=== PATIENT | male | born 1950 | race Hispanic/Latino ===

== ENCOUNTER 2017-09-03 18:29 | Emergency (ER) | payer OTHER ==
[2017-09-03] MEDS ORDERED: FENTANYL CITR 100 MCG/2 ML ONE ×2 (18:49→20:08)
[2017-09-03] MEDS ORDERED: NA CHLORIDE 0.9% 1,000 ML ONE (18:49)
[2017-09-03] MEDS ORDERED: ONDANSETRON 4 MG/2 ML VIAL ONE (18:49)
[2017-09-03 19:05] LABS: Absolute Lymphocytes (CBC) 1.2 K/uL (0.7-4.9); Absolute Monocytes 0.4 K/uL (0.1-1.3); Absolute Neutrophil 9.1 K/uL (1.8-8.0); Basophils % 0.2 % (0-1.3); Eosinophils % 0.7 % (0-4.4); Hematocrit 33.3 % (39.6-49.0); MCH 30.5 pg (27.0-35.0); MPV 10.3 fL (7.6-11.3); Monocytes % 3.9 % (3.3-12.3); RBC Red Blood Cell Count 3.73 M/uL (4.33-5.43)
[2017-09-03 19:35] LABS: Albumin 3.9 g/dL (3.4-5.0); Bilirubin Direct 0.2 mg/dL (0-0.2); Bilirubin Total 0.6 mg/dL (0.2-1.0); Protein, Total 7.2 g/dL (6.4-8.2)
--- NOTE | 2017-09-03 19:40 | ER ---
Nurse's Notes [facility] Name: Keith Maynard Age: 67 yrs Sex: Male : 1950 Arrival Date: 09/03/2017 Time: 18:[address] Private MD: Diagnosis: Multiple fractures of ribs, bilateral;Fracture of unspecified thoracic vertebra Presentation: 09/03 18:35 Trauma event details: Injury occurred in the [facility], Injury occurred: at home. Injury occurred: September 03, 2017. 18:35 Acuity: ROBINSON 2 sv 18:35 Method Of Arrival: EMS: [facility] sv 18:44 Initial Sepsis Screen: Does the patient meet any 2 criteria? RR > 20 per min. Yes Does sv the patient have a suspected source of infection? No. Patient's initial sepsis screen is negative. Care prior to arrival: Cervical collar in place. 18:52 Transition of care: patient was not received from another setting of care. Onset of sv symptoms was September 03, 2017. Risk Assessment: Do you want to hurt yourself or someone else? Patient reports no desire to harm self or others. 19:30 Presenting complaint: HE FELL TEN FEET OUT OF A TREE. bp 19:30 Mechanism of Injury: Fall approximately 10 feet. bp Triage Assessment: 19:30 General: Appears distressed, uncomfortable, Behavior is calm, cooperative, appropriate bp for age. Trauma Activation: Alert Physician: ED Physician; Name: Dr. Dailey; Notified At: 18:31; Arrived At: 18:32 Physician: General Surgeon; Name: ; Notified At: 18:31; Arrived At: Physician: Radiology; Name: ; Notified At: 18:31; Arrived At: Physician: Respiratory; Name: ; Notified At: 18:31; Arrived At: Physician: Lab; Name: ; Notified At: 18:31; Arrived At: Historical: - Allergies: 18:50 PENICILLINS; sv - PMHx: 18:50 Diabetes - NIDDM; Hypertension; sv - Immunization history:: Adult Immunizations up to date. - Social history:: Patient/guardian denies using alcohol, street drugs, IV drugs, Smoking status: Patient/guardian denies using tobacco. - Immunization history: Last tetanus immunization: unknown. - Ebola Screening: : No symptoms or risks identified at this time. - Family history:: not pertinent. - Hospitalizations: : No recent hospitalization is reported. Screenin:39 Abuse screen: Denies threats or abuse. Denies injuries from another. Nutritional sv screening: No deficits noted. Tuberculosis screening: No symptoms or risk factors identified. 19:30 Fall Risk Fall in past 12 months (25 points). No secondary diagnosis (0 pts). IV access bp (20 points). Ambulatory Aid- None/Bed Rest/Nurse Assist (0 pts). Gait- Normal/Bed Rest/Wheelchair (0 pts) Mental Status- Oriented to own ability (0 pts). Total [place] Fall Scale indicates High Risk Score (45 or more points). Fall prevention measures have been instituted. Side Rails Up X 2 Placed Close to Nursing Station Frequent Obs/Assessments Occuring Family Present and informed to notify staff if the need to leave the bedside As available patient and family educated on Fall Prevention Program and Strategies. Primary Survey: 18:45 A: Airway: patent, No supplemental oxygen in use on arrival. Oral cavity: clear. sg Breathing/Chest: Respiratory pattern: regular, Respiratory effort: spontaneous, unlabored, Breath sounds: clear, bilaterally. Chest inspection: symmetrical rise and fall of the chest. Circulation: Heart tones present. Pulses: palpable right radial artery, right posterior tibial artery, left radial artery and left posterior tibial artery. Skin color: pink, Skin temperature: warm. Disability Alert. 18:59 Reassessment Airway Airway Patent Oxygen Nasal cannula Oral cavity Clear Trachea sg Midline Breathing/Chest Respiratory pattern Regular Respiratory effort Spontaneous Unlabored Breath sounds Clear Chest inspection Symmetrical Circulation Heart tones Present Pulses Palpable Color [place] Temperature Warm Disability Alert. Secondary Survey: 18:45 HEENT: No deficits noted. Head Face No injury/deformity Eyes: No injury or deformity sg noted. Ears: abrasion noted to right ear. Nose: clear Throat: No injury or deformity noted. Gastrointestinal: No deficits noted. Abdomen is soft, Bowel sounds present in right upper quadrant, left upper quadrant, right lower quadrant and left lower quadrant Palpation No deficit noted. : No signs and/or symptoms were reported regarding the genitourinary system. Musculoskeletal: Circulation, motion, and sensation intact. Capillary refill is brisk, in bilateral fingers. toes. Range of motion: intact in all extremities, Swelling present in medial aspect of left calf Reports pain in back, left supraclavicular area, left clavicle and neck. Assessment: 18:42 Reassessment: Xray at the bedside. sv 19:34 Reassessment: RECD 67YO HM FROM KIERSTEN RN, S/P FALL \R\10FT FROM TREE. ALL ORDERS bp COMPLETED, CT RESULTS PENDING. PER INITIAL READ SEVERAL POSSIBLE THORACIC FX. CC AND SPINAL PRECAUTIONS REMAIN IN PLACE. 19:55 Reassessment: REPORT TO [facility] FOR TRAUMA TRANSFER, TRANSPORT PENDING. bp 20:15 Reassessment: EMS AT B/S FOR TRANSPORT. SPINAL PRECAUTIONS MAINTAINED. bp Vital Signs: 18:26 BP 116 / 72; Pulse 77; Resp 22; Pulse Ox 100% ; sv 18:26 Temp 97.7; sg 19:24 Weight 75.3 kg; Height 5 ft. 6 in. (167.64 cm); ms 19:30 BP 115 / 63; Pulse 74; Resp 21; Pulse Ox 100% ; bp 20:15 BP 134 / 65; Pulse 85; Resp 18; Pulse Ox 100% ; bp 19:24 Body Mass Index 26.79 (75.30 kg, 167.64 cm) ms [place] Coma Score: 18:26 Eye Response: spontaneous(4). Verbal Response: oriented(5). Motor Response: obeys sv commands(6). Total: 15. Trauma Score (Adult): 18:26 Eye Response: spontaneous(1); Verbal Response: oriented(1); Motor Response: obeys sv commands(2); Systolic BP: > 89 mm Hg(4); Respiratory Rate: 10 to 29 per min(4); [place] Score: 15; Trauma Score: 12 ED Course: 18:32 Initial lab(s) drawn, by ED staff, sent to lab. Inserted saline lock: 18 gauge in right sv antecubital area, using aseptic technique. ,using aseptic technique. done by [facility] Blood collected. 18:38 Patient arrived in ED. sv 18:38 Allen Dailey MD is Attending Physician. wa 18:39 Patient has correct armband on for positive identification. Placed in gown. Bed in low sv position. Side rails up X2. Adult w/ patient. shank faker on. Pulse ox on. NIBP on. Door closed. Head of bed elevated. 18:40 Thermoregulation: warm blanket given to patient. sv 18:40 Oxygen administration via nasal cannula \T\ 3L/min Response to oxygen therapy:. sv 18:40 Arm band placed on left wrist. sv 18:52 Triage completed. sv 19:03 XRAY Pelvis In Process Unspecified. EDMS 19:04 XRAY Chest (1 view) In Process Unspecified. EDMS 19:04 Tib Fib Left XRAY In Process Unspecified. EDMS 19:07 Report given to Kiersten LOCKWOOD. sv 19:08 CT Traumagram (Head C Spine CAP wo con) In Process Unspecified. EDMS 19:08 CT completed. Patient tolerated procedure well. Patient moved to CT. Patient moved back id from CT. 19:30 No provider procedures requiring assistance completed. Patient transferred, IV remains bp in place. 19:34 Brown García, RN is Primary Nurse. bp Administered Medications: 18:47 Drug: Zofran 4 mg Route: IVP; Site: right antecubital; sv 19:18 Follow up: Response: No adverse reaction ak1 19:56 Follow up: Response: Nausea is decreased bp 18:49 Drug: fentaNYL (PF) 100 mcg Route: IVP; Site: right antecubital; sv 19:18 Follow up: Response: No adverse reaction ak1 19:56 Follow up: Response: Pain is decreased bp 19:18 Drug: NS 0.9% 1000 ml Route: IV; Rate: 1 bolus; Site: right antecubital; ak1 19:56 Follow up: IV Status: Infusion continued upon transfer bp 20:15 Drug: fentaNYL (PF) 50 mcg Route: IVP; Site: right antecubital; bp 20:29 Follow up: Response: Pain is decreased bp Intake: 18:26 PO: 0ml; Total: 0ml. sv Outcome: 19:40 ER care complete, transfer ordered by . gs 20:31 Transferred by ground EMS to [facility]. bp 20:31 Condition: stable 20:31 Instructed on the need for transfer. 20:34 Patient's length of stay was not longer than 2 hours. bp 20:34 Patient left the ED. bp Signatures: Dispatcher [employer] Jeannette Conway RN RN sv Gay, Steven, RN RN sg Solis, Maria ms Krenek, Amber, RN RN ak1 Sahara Alcantar, MANDIE RN Kulwinder Forbes Gregory, MD MD gs Allen Dailey MD MD wa Peltier, Brian, MANDIE RN bp
--- NOTE | 2017-09-03 19:41 | EDPHYS ---
Physician Documentation [facility] Name: Keith Maynard Age: 67 yrs Sex: Male : 1950 Arrival Date: 09/03/2017 Time: 18:[address] Private MD: ED Physician Allen Dailey HPI: 09/03 19:18 This 67 yrs old Male presents to ER via EMS with complaints of Fall Injury. wa 19:18 Details of fall: The patient fell from a height, out of a tree, approximately 15 feet. wa Onset: The symptoms/episode began/occurred just prior to arrival. Associated injuries: The patient sustained LOC. c/o back pain. Severity of symptoms: At their worst the symptoms were moderate, in the emergency department the symptoms are unchanged. The patient has not experienced similar symptoms in the past. The patient has not recently seen a physician. pt fell from at least 10 feet while trimming a tree. positive LOC. admits to pain in the back. Historical: - Allergies: 18:50 PENICILLINS; sv - PMHx: 18:50 Diabetes - NIDDM; Hypertension; sv - Immunization history:: Adult Immunizations up to date. - Social history:: Patient/guardian denies using alcohol, street drugs, IV drugs, Smoking status: Patient/guardian denies using tobacco. - Immunization history: Last tetanus immunization: unknown. - Ebola Screening: : No symptoms or risks identified at this time. - Family history:: not pertinent. - Hospitalizations: : No recent hospitalization is reported. ROS: 19:20 Constitutional: Negative for fever, chills, and weight loss, Eyes: Negative for injury, wa pain, redness, and discharge, ENT: Negative for injury, pain, and discharge, Cardiovascular: Negative for chest pain, palpitations, and edema, Respiratory: Negative for shortness of breath, cough, wheezing, and pleuritic chest pain, Abdomen/GI: Negative for abdominal pain, nausea, vomiting, diarrhea, and constipation, : Negative for injury, bleeding, discharge, and swelling, Skin: Negative for injury, rash, and discoloration, Psych: Negative for depression, anxiety, suicide ideation, homicidal ideation, and hallucinations. 19:20 Neck: Negative for swelling. 19:20 Back: Positive for pain at rest. 19:20 MS/extremity: Positive for pain, swelling, tenderness, of the L tibia. 19:20 Neuro: Positive for loss of consciousness. 19:20 All other systems are negative. Exam: 19:23 Constitutional: This is a well developed, well nourished patient who is awake, alert, wa and in no acute distress. Head/Face: Normocephalic, atraumatic. Eyes: Pupils equal round and reactive to light, extra-ocular motions intact. Lids and lashes normal. Conjunctiva and sclera are non-icteric and not injected. Cornea within normal limits. Periorbital areas with no swelling, redness, or edema. ENT: Nares patent. No nasal discharge, no septal abnormalities noted. Tympanic membranes are normal and external auditory canals are clear. Oropharynx with no redness, swelling, or masses, exudates, or evidence of obstruction, uvula midline. Mucous membranes moist. Cardiovascular: Regular rate and rhythm with a normal S1 and S2. No gallops, murmurs, or rubs. Normal PMI, no JVD. No pulse deficits. Skin: Warm, dry with normal turgor. Normal color with no rashes, no lesions, and no evidence of cellulitis. Neuro: Awake and alert, GCS 15, oriented to person, place, time, and situation. Cranial nerves II-XII grossly intact. Motor strength 5/5 in all extremities. Sensory grossly intact. Cerebellar exam normal. Normal gait. Psych: Awake, alert, with orientation to person, place and time. Behavior, mood, and affect are within normal limits. 19:23 Neck: External neck: is normal, C-spine: vertebral tenderness, that is mild, appreciated at C7, Trachea: is midline with no obvious abnormalities. 19:23 Chest/axilla: Inspection: normal, Palpation: crepitus, that is mild, of the left supraclavicular area. 19:23 Back: pain, that is moderate, of the thoracic area and lumbar area. 19:23 Musculoskeletal/extremity: Extremities: grossly normal except: noted in the left supraclavicular area: noted in the left lower leg: contusion. 19:23 Neuro: Orientation: is normal. Vital Signs: 18:26 BP 116 / 72; Pulse 77; Resp 22; Pulse Ox 100% ; sv 18:26 Temp 97.7; sg 19:24 Weight 75.3 kg; Height 5 ft. 6 in. (167.64 cm); ms 19:30 BP 115 / 63; Pulse 74; Resp 21; Pulse Ox 100% ; bp 20:15 BP 134 / 65; Pulse 85; Resp 18; Pulse Ox 100% ; bp 19:24 Body Mass Index 26.79 (75.30 kg, 167.64 cm) ms [place] Coma Score: 18:26 Eye Response: spontaneous(4). Verbal Response: oriented(5). Motor Response: obeys sv commands(6). Total: 15. Trauma Score (Adult): 18:26 Eye Response: spontaneous(1); Verbal Response: oriented(1); Motor Response: obeys sv commands(2); Systolic BP: > 89 mm Hg(4); Respiratory Rate: 10 to 29 per min(4); [place] Score: 15; Trauma Score: 12 MDM: 18:38 Patient medically screened. ks 19:28 Differential diagnosis: closed head injury, contusion, fracture, multiple trauma, wa sprain, strain. Data reviewed: vital signs, nurses notes. Test interpretation: by ED physician or midlevel provider:. Transition of care: After a detail discussion of the patient's case, care is transferred to Arvin Miller MD. Special discussion: dangerous mechanism. will work to eval for acute traumatic injuries. pain control. close monitoring. reassess. 19:36 ED course: dr malhotra accepts. 09/03 18:40 Order name: Basic Metabolic Panel; Complete Time: 19:36 ks 09/03 18:40 Order name: CBC with Diff; Complete Time: 19:36 ks 09/03 18:40 Order name: Creatinine for Radiology; Complete Time: 19:36 ks 09/03 18:40 Order name: Type And Screen; Complete Time: 19:36 ks 09/03 18:42 Order name: Hepatic Function; Complete Time: 19:36 ks 09/03 18:42 Order name: Lipase; Complete Time: 19:36 ks 09/03 18:40 Order name: XRAY Pelvis ks 09/03 18:40 Order name: XRAY Chest (1 view) ks 09/03 18:40 Order name: CT Traumagram (Head C Spine CAP wo con) ks 09/03 18:41 Order name: Tib Fib Left XRAY ks 09/03 18:42 Order name: Urine Microscopic Only ks 09/03 18:40 Order name: Labs collected and sent; Complete Time: 19:21 ks 09/03 18:42 Order name: IV Saline Lock; Complete Time: 18:49 ks 09/03 18:42 Order name: Labs collected and sent; Complete Time: 18:49 ks Administered Medications: 18:47 Drug: Zofran 4 mg Route: IVP; Site: right antecubital; sv 19:18 Follow up: Response: No adverse reaction ak1 19:56 Follow up: Response: Nausea is decreased bp 18:49 Drug: fentaNYL (PF) 100 mcg Route: IVP; Site: right antecubital; sv 19:18 Follow up: Response: No adverse reaction ak1 19:56 Follow up: Response: Pain is decreased bp 19:18 Drug: NS 0.9% 1000 ml Route: IV; Rate: 1 bolus; Site: right antecubital; ak1 19:56 Follow up: IV Status: Infusion continued upon transfer bp 20:15 Drug: fentaNYL (PF) 50 mcg Route: IVP; Site: right antecubital; bp 20:29 Follow up: Response: Pain is decreased bp Disposition: 09/03/17 19:40 Transfer ordered to [facility]. Diagnosis are Multiple fractures of ribs, bilateral, Fracture of unspecified thoracic vertebra. - Reason for transfer: Higher level of care. - Accepting physician is marya. - Condition is Stable. - Problem is new. - Symptoms have improved. Signatures: Dispatcher [employer] EDMS Jeannette Espino RN MANDIE Kiersten Urena RN RN ak1 Arvin Miller MD MD Allen Dailey MD MD wa Peltier, Brian, RN RN bp Corrections: (The following items were deleted from the chart) 18:48 18:42 Thoracic Spine WO Cont+CT.RAD.BRZ ordered. EDMS EDMS 18:49 18:42 Spine Lumbar Wo Con+CT.RAD.BRZ ordered. EDMA EDMS 20:34 19:40 09/03/2017 19:40 Transfer ordered to [facility]. bp Diagnosis is Multiple fractures of ribs, bilateral; Fracture of unspecified thoracic vertebra. Reason for transfer: Higher level of care. Accepting physician is marya. Condition is Stable. Problem is new. Symptoms have improved.
--- NOTE | 2017-09-03 19:47 | RAD REPORT ---
EXAM DESCRIPTION: CT - Head C Spine Cap Wo Con - 09/03/2017 7:07 pm CLINICAL HISTORY: Head and neck injury with chest and abdominal pain status post fall from a tree. N o loss of consciousness. TECHNIQUE: Computed axial tomography of the head and cervical spine was obtained. Coronal and sagitt al reconstruction was performed Computed axial tomography of the chest, abdomen and pelvis was obtained. Contrast was not requested. All CT scans are performed using dose optimization technique as appropriate and may include automated exposure control or mA/KV adjustment according to patient size. COMPARISON: None FINDINGS: Evaluation of the mediastinum, hilum, vessels, solid organs and bowel is limited secondary to lack of contrast administration An intracranial bleed is not seen. The ventricles are normal caliber. An extra-axial fluid collection is not noted. Fluid within the sinuses/mastoids is not seen. Nondisplaced fractures involve the left transverse processes of C6 and C7. No dislocation is seen. Mi ld posterior subluxation of C5 on C6 is present. Disc space narrowing and osteophytes are noted. This results in moderate right foraminal stenosis. Nondisplaced fracture involves the first right rib. Comminuted mildly displaced fracture involves the third posterior right rib. Comminuted mildly displaced fracture involves the fourth posterior right rib. Nondisplaced fracture involves the posterior right fifth rib. Mildly displaced fracture involves the lateral right fifth rib. Moderately displaced fracture involves the right posterolateral 6 rib. Nondisplaced fracture involves the posterior right 6 rib. A mildly displaced fracture involves the distal left clavicle. A a left pneumothorax estimated to be approximately 15% is present. Mild alveolar opacities are present within the right posterior lung. A mediastinal hematoma is not se en. A small right hemothorax is present. Subcutaneous emphysema is present within the lower right posterior neck and posterolateral right ches t The liver, pancreas, kidneys and bladder appear grossly normal. The spleen has been removed. Metallic densities are present within the left upper quadrant. Iliac stents are in place. Inguinal hernias contain fat. The prostate gland is mildly enlarged. IMPRESSION: 1. No acute intracranial abnormality is seen. 2. Nondisplaced fractures of the left sixth and seventh transverse processes. If the patient continue s to have symptoms to suggest intracranial/spinal cord pathology then MRI would be recommended 3. Multiple right rib fractures with subcutaneous emphysema involving the inferior right neck and rig ht posterior-lateral chest 4. Approximately 15% left pneumothorax 5. Mildly displaced fracture involving the distal left clavicle 6. No acute traumatic injury involving the abdomen/pelvis is seen 7. Mild alveolar opacities within the posterior right lung may represent contusion The exam was discussed with Dr. Miller
--- NOTE | 2017-09-03 20:06 | RAD REPORT ---
EXAM DESCRIPTION: RAD - Pelvis - 09/03/2017 7:03 pm CLINICAL HISTORY: Pelvic pain status post injury FINDINGS: No fracture or dislocation is seen.
[2017-09-03] MEDS ORDERED: IBUPROFEN 100 MG/5 ML UCUP ONE (20:08)
--- NOTE | 2017-09-03 20:09 | RAD REPORT ---
EXAM DESCRIPTION: Isiah Single View09/03/2017 7:03 pm CLINICAL HISTORY: Chest pain COMPARISON: 2016 FINDINGS: Nondisplaced and mildly displaced fractures involve the right first, third, fourth, fifth and 6 ribs. Mildly displaced fracture involves the mid left clavicle. The small left pneumothorax seen on the CT chest is not clearly visualized on this exam. Mild haziness involves the right lung. The left lung appears clear. The heart is normal size Subcutaneous emphysema is seen within the lower right neck and right chest
--- NOTE | 2017-09-03 20:10 | RAD REPORT ---
EXAM DESCRIPTION: Juliana Barbosa Left09/03/2017 7:03 pm CLINICAL HISTORY: Left leg pain status post injury FINDINGS: No fracture is seen
[2017-09-03 21:30] LABS: Urine Bacteria <20 /HPF (NONE SEEN); Urine Culture Reflex Order NOT NEEDED; Urine Mucus SLIGHT /HPF (NONE SEEN); Urine RBC <5 /HPF (NONE SEEN)
== END 2017-09-03 20:34 | disposition short-term general hospital (02) ==
LOC: ER 18:29
DX: S22.43XA Multiple fractures of ribs, bilateral, initial encounter for closed fracture (principal); S22.009A Unspecified fracture of unspecified thoracic vertebra, initial encounter for closed fracture; W14.XXXA Fall from tree, initial encounter; Y93.H2 Activity, gardening and landscaping; Y92.007 Garden or yard of unspecified non-institutional (private) residence as the place of occurrence of the external cause; Z88.0 Allergy status to penicillin; I10 Essential (primary) hypertension
CPT/HCPCS: 36415; 70450; 71045; 71250; 72125; 72170; 73590; 80048; 80076; 81015; 83690; 85025; 86850; 86900; 86901; J2405; J3010 ×2; J7030; 96361; 96374; 96375; 99285

== ENCOUNTER 2020-05-21 17:52 | Emergency (ER) | payer OTHER ==
--- OUTSIDE RECORDS SUMMARY | 2020-05-21 17:56 | XMS REPORT | Continuity of Care Document ---
:1950 Author Organization [facility] t Address [address] [place] [address] Care Team Providers Name Role Phone MEMO Attending Clinician Unavailable Lab, Fam Pob I Attending Clinician Unavailable Doctor Unassigned, Name Attending Clinician Unavailable JAMI Attending Clinician Unavailable EEG Attending Clinician Unavailable DEIRDRE Attending Clinician Unavailable ALLEN Attending Clinician Unavailable Payers Payer Name Policy Type Policy Number Effective Date Expiration Date S ource Problems Condition Condition Condition Status Onset Resolution Last Treating Co mments Source Name Details Category Date Date Treatment Clinician Date Type 2 Type 2 Problem Active 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 history of History of 11-13 [facility] cardiac Cardiac 00:00: Practic disorder Disorder 00 e Onychomyco Onychomyco Problem Active [facility] sis sis 11-13 Family 00:00: Practic 00 e Benign Benign Problem Active [facility] neoplastic Neoplastic 11-13 [facility] disease Disease 00:00: Practic 00 e Body mass Body Mass Problem Active Todd cervantes index Index 11-13 Family 25-29 - 25-29 - 00:00: Practic overweight Overweight 00 e Anemia Anemia Problem Active [facility] 11-13 Family 00:00: Practic 00 e Hypertensi Hypertensi Problem Active [facility] ve ve 11-13 Family disorder Disorder 00:00: Practi c 00 e Large Large Problem Active [facility] prostate Prostate 11-13 Family 00:00: Practic 00 e Type 2 Type 2 Problem Active [facility] diabetes Diabetes 11-13 Family mellitus Mellitus 00:00: Practi c without without 00 e complicati Complicati on on Mixed Mixed Problem Active [facility] hyperlipid Hyperlipid 11-13 Uma lopes emia emia 00:00: Practic 00 e Obstructiv Obstructiv Problem Active [facility] e sleep e Sleep 11-13 Family apnea Apnea 00:00: Practic syndrome Syndrome 00 e Essential Essential Problem Active Todd cervantes hypertensi Hypertensi 11-13 Uma lopes on on 00:00: Practic 00 e Peripheral Peripheral Problem Active [facility] vascular Vascular 11-13 Family disease Disease 00:00: Practic 00 e Benign Benign Problem Active [facility] prostatic Prostatic 11-13 Fami ly hypertroph Hypertroph 00:00: Pr actic y without y without 00 e outflow Outflow obstructio Obstructio n n Primary Primary Problem Active [facility] erectile Erectile 11-13 Family dysfunctio Dysfunctio 00:00: Pr actic n n 00 e Eruption Eruption Problem Active Canelo johana 11-13 Family 00:00: Practic 00 e Influenza Influenza Problem Active Todd cervantes vaccine Vaccine 11-13 Family needed Needed 00:00: Practic 00 e Family Family Problem Active [facility] history of History of 11-13 Uma lopes stroke Stroke 00:00: Practic 00 e Clinical Clinical Problem Active Canelo johana finding Finding 11-13 Family 00:00: Practic 00 e History of History of Problem Resolve [facility] hyperchole hyperchole d it [place] of sterolemia sterolemia [place] [facility] [facility] History of History of Problem Resolve [facility] essential essential d [place] of hypertens[place] hypertens[place]ici [place] History of History of Problem Resolve [facility] obstructiv obstructiv d it y of e sleep e sleep [place] apnea apnea Physici ans Clavicle Clavicle Problem Active Unive rs fracture fracture ity of [place] Physici ans Closed Closed Problem Active Univers fracture fracture ity of of of [place] multiple multiple Physic i ribs of ribs of ans right side right side with with routine routine healing, healing, subsequent subsequent encounter encounter Cervical Cervical Problem Active Unive rs pain pain ity of [place] Physici ans Back pain Back pain Problem Active Uni vers ity of [place] Physici ans Other Other Problem Active Univers closed closed it[place] of nondisplac nondisplac [place] fracture fracture ans of sixth of sixth cervical cervical vertebra vertebra with with routine routine healing, healing, subsequent subsequent encounter encounter Other Other Problem Active Univers closed closed ity of fracture fracture [place] of sixth of sixth Physic i thoracic thoracic ans vertebra vertebra with with routine routine healing, healing, subsequent subsequent encounter encounter Other Other Problem Active Univers closed closed ity of fracture fracture [place] of second of second Phys ici lumbar lumbar ans vertebra vertebra with with routine routine healing, healing, subsequent subsequent encounter encounter Other Other Problem Active [facility] closed closed [place] of nondisplac nondisplac [place] fracture fracture ans of seventh of seventh cervical cervical vertebra vertebra with with routine routine healing, healing, subsequent subsequent encounter encounter Convulsion Convulsion Problem Active U nivers s, s, ity of unspecifie [place]specifie [place] Physici convulsion convulsion an s type type Allergies, Adverse Reactions, Alerts Allergy Allergy Status Severity Reaction(s) Onset Inactive Treating Comm ents Source Name Type Date Date Clinician [place] DA Active [facility] 09-[facility] 00:00: [address] [place] Allergy Active Univers ins to drug ity of (finding [place] ) Physici ans [place] Allergy Active [place] INS to Family substanc Practic e e Family History Family Member Diagnosis Comments Start Date Stop Date Source Mother Family history of [facility] ity of [place] Parkinson's disease Physi cians Social History Smoking Status Start Date Stop Date Source Never smoked tobacco (finding) U [facility] Physicians Medications Ordered Filled Start Stop Current Ordering Indication Dosage Frequency Signature Comments Components Source Medication Medication Date Date Medication? Clinician (SIG) Name Name Gabapentin Gabapentin Yes GLORIA VILLA i po q 8H Univers 100 MG Oral 100 MG Oral 7-31 M.D. i ty of Capsule Capsule 00:00: [place] 00 Physici ans Desmopressi Desmopressi Yes 1 TAKE 1 Univers n Acetate n Acetate TABLET AT ity of 0.2 MG Oral 0.2 MG Oral BEDTIME. [place] Tablet Tablet Physici ans Clopidogrel Clopidogrel Yes 1 QD TAKE 1 Univers Bisulfate Bisulfate TABLET ity of 75 MG Oral 75 MG Oral DAILY [place] Tablet Tablet Physici ans diazePAM 5 diazePAM 5 Yes TAKE ONCE Univers MG Oral MG Oral ity of Tablet Tablet [place] Physici ans amLODIPine amLODIPine Yes QD TAKE 1 U nivers Besylate 5 Besylate 5 TABLET i ty of MG Oral MG Oral DAILY [place] Tablet Tablet DIRECTED. Physic i ans metFORMIN metFORMIN Yes 1 Q0.5D TAKE 1 Un [place] HCl - 500 HCl - 500 TABLET ity of MG Oral MG Oral TWICE [place] Tablet Tablet DAILY Physici ans Losartan Losartan Yes 1 QD TAKE 1 Unive rs Potassium-H Potassium-H TABLET ity of CTZ 50-12.5 CTZ 50-12.5 DAILY. [place] MG Oral MG Oral Physici Tablet Tablet ans Finasteride Finasteride Yes 1 tablet Univers 5 MG Oral 5 MG Oral 3x a week ity of Tablet Tablet [place] Physici ans Atorvastati Atorvastati Yes 1 QD TAKE 1 Univers n Calcium n Calcium TABLET ity of 40 MG Oral 40 MG Oral DAILY [place] Tablet Tablet Physici ans Fenofibrate Fenofibrate Yes 1 QD TAKE 1 Univers 145 MG Oral 145 MG Oral TABLET ity of Tablet Tablet DAILY. [place] Physici ans Aspirin 81 Aspirin 81 Yes 1 QD TAKE 1 U nivers MG TABS MG TABS TABLET ity of DAILY. [place] Physici ans Vitamin C Vitamin C Yes QD CHEW AND U nivers 1000 MG 1000 MG SWALLOW 1 ity of CHEW CHEW TABLET [place] DAILY. Physici ans Vitamin D3 Vitamin D3 Yes 1 QD TAKE 1 U nivers 50 MCG 50 MCG CAPSULE ity of (1999 [place]) (1999 [place] DAILY [place] Oral Oral Physici Capsule Capsule ans Vitamin E Vitamin E Yes 180 mg Uni vers 400 UNIT 400 UNIT daily ity of Oral Oral [place] Capsule Capsule Physici ans Mens 50+ Mens 50+ Yes 1 QD TAKE 1 Unive rs Multi Multi TABLET ity of Vitamin/Min Vitamin/Min DAILY. [place] TABS TABS Physici ans Zinc 50 MG Zinc 50 MG Yes 1 QD TAKE 1 U nivers Oral Tablet Oral Tablet TABLET ity of DAILY. [place] Physici ans Adult Adult No 1 Q1D Adult [place] Aspirin Aspirin Aspirin Family Regimen 81 Regimen 81 Regimen 81 Practic mg mg mg e tablet,jens tablet,jens tablet,del yed release yed release ayed Take 1 Take 1 release tablet tablet Take 1 every day every day tablet by oral by oral every day route. route. by oral route. amlodipine amlodipine No amlodipine [facility] 5 mg tablet 5 mg tablet 5 mg F amily TAKE 1 TAKE 1 tablet Practic TABLET BY TABLET BY TAKE 1 e MOUTH EVERY MOUTH EVERY TABLET BY DAY DAY MOUTH EVERY DAY atorvastati atorvastati No atorvastat [facility] n 40 mg n 40 mg in 40 mg Famil y tablet TAKE tablet TAKE tablet Practic 1 TABLET BY 1 TABLET BY TAKE 1 e MOUTH AT MOUTH AT TABLET BY BEDTIME..PA BEDTIME..PA MOUTH AT TIENT DUE TIENT DUE BEDTIME..P FOR LABS FOR LABS ATIENT DUE AND OFFICE AND OFFICE FOR LABS VISIT VISIT AND OFFICE VISIT clopidogrel clopidogrel No clopidogre [facility] 75 mg 75 mg l 75 mg Family tablet TAKE tablet TAKE tablet Practic 1 TABLET BY 1 TABLET BY TAKE 1 e MOUTH EVERY MOUTH EVERY TABLET BY DAY DAY MOUTH EVERY DAY desmopressi desmopressi No desmopress [facility] n 0.2 mg n 0.2 mg in 0.2 mg Fa marianne tablet tablet tablet Practic e Ditropan XL Ditropan XL No 1 Q1D D[address]rop[address] [facility] 5 mg 5 mg XL 5 mg Family tablet,exte tablet,exte tablet,ext Practic nded nded ended e release release release Take 1 Take 1 Take 1 tablet tablet tablet every day every day every day by oral by oral by oral route. route. route. fenofibrate fenofibrate No 1 Q1D fenofibrat [facility] micronized micronized e Fam jaxson 145 mg 145 mg micronized Pract ic tablet Take tablet Take 145 mg e 1 tablet 1 tablet tablet every day every day Take 1 by oral by oral tablet route. route. every day by oral route. fenofibrate [facility]rystal nanocrystal e F amily lized 145 lized 145 nanocrysta Practic mg tablet mg tablet llized 145 e TAKE 1 TAKE 1 mg tablet TABLET BY TABLET BY TAKE 1 MOUTH EVERY MOUTH EVERY TABLET BY DAY WITH DAY WITH MOUTH FOOD FOOD EVERY DAY WITH FOOD finasteride finasteride No finasterid [facility] 5 mg tablet 5 mg tablet e 5 mg Family Take 1 Take 1 tablet Practic tablet tablet Take 1 e every day every day tablet by oral by oral every day route. route. by oral route. losartan losartan No losartan Todd helen 100 100 100 Family mg-hydrochl mg-hydrochl mg-hydroch Practic orothiazide orothiazide lorothiazi e 12.5 mg 12.5 mg de 12.5 mg tablet TAKE tablet TAKE tablet 1 TABLET BY 1 TABLET BY TAKE 1 MOUTH EVERY MOUTH EVERY TABLET BY DAY DAY MOUTH EVERY DAY metformin metformin No 1 BID metformin [place] ER 500 mg ER 500 mg ER 500 mg Family 24 hr 24 hr 24 hr Practic tablet,exte tablet,exte tablet,ext e nded nded ended release release release Take 1 Take 1 Take 1 tablet tablet tablet twice a day twice a day twice a by oral by oral day by route for route for oral route 90 days. 90 days. for 90 days. metformin metformin No metformin [facility] ER 500 mg ER 500 mg ER 500 mg Family tablet,exte tablet,exte tablet,ext Practic nded nded ended e release 24 release 24 release 24 hr TAKE 1 hr TAKE 1 hr TAKE 1 TABLET BY TABLET BY TABLET BY MOUTH TWICE MOUTH TWICE MOUTH DAILY DAILY TWICE DAILY multivitami multivitami No multivitam [facility] n 1x a day n 1x a day in 1x a Family day Practic e OneTouch OneTouch No OneTouch Todd nickersone Delica Delica Delica Family Lancets 33 Lancets 33 Lancets 33 Practic gauge USE gauge USE gauge USE e ONCE A ONCE A ONCE A DAILY E11.9 DAILY E11.9 DAILY E11.9 OneTouch OneTouch No OneTouch Todd helen Verio test Verio test Verio test Family strips USE strips USE strips USE Practic ONCE A DAY ONCE A DAY ONCE A DAY e E11.9 E11.9 E11.9 sildenafil sildenafil No sildenafil [facility] 100 mg 100 mg 100 mg Family tablet TAKE tablet TAKE tablet Practic ONE (1) ONE (1) TAKE ONE e TABLET(S) TABLET(S) (1) BY MOUTH BY MOUTH TABLET(S) NEEDED ONCE NEEDED ONCE BY MOUTH A DAY. A DAY. NEEDED ONCE A DAY. simvastatin simvastatin No 1 Q1D [facility] 20 mg 20 mg n 20 mg Family tablet Take tablet Take tablet Practic 1 tablet 1 tablet Take 1 e every day every day tablet by oral by oral every day route. route. by oral route. tadalafil 5 tadalafil 5 No tadalafil [place] mg tablet mg tablet 5 mg Famil y TAKE ONE TAKE ONE tablet Pract ic (1) (1) TAKE ONE e TABLET(S) TABLET(S) (1) BY MOUTH BY MOUTH TABLET(S) ONCE A DAY. ONCE A DAY. BY MOUTH ONCE A DAY. tamsulosin tamsulosin No tamsulosin [facility] 0.4 mg 0.4 mg 0.4 mg Family capsule capsule capsule Practi c e Vitamin C Vitamin C No Vitamin C [facility] Family Practic e Vital Signs Vital Name Observation Time Observation Value Comments Source BP Diastolic 2020-04-12 79 mm[Hg] [facility] 00:00:00 Practice Height 2020-04-12 66 [in_i] [facility] Family 00:00:00 Practice BMI (Body Mass 2020-04-12 25.7 kg/m2 [facility] Famil y Index) 00:00:00 Practice BP Systolic 2020-04-12 153 mm[Hg] [facility] 00:00:00 Practice Body Weight 2020-04-12 159 [lb_av] [facility] 00:00:00 Practice BP Diastolic 2019-12-02 84 mm[Hg] [facility] 00:00:00 Practice Height 2019-12-02 66 [in_i] [facility] Family 00:00:00 Practice BMI (Body Mass 2019-12-02 25.5 kg/m2 [facility] Famil y Index) 00:00:00 Practice BP Systolic 2019-12-02 130 mm[Hg] [facility] 00:00:00 Practice Body Weight 2019-12-02 158 [lb_av] [facility] 00:00:00 Practice Systolic blood 2019-12-17 163 mm[Hg] Location: [facility] 13:09:00 Position: [place] Physician s Sitting Diastolic blood 2019-12-17 73 mm[Hg] Location: [facility] 13:09:00 Position: [place] Physician s Sitting Body height 2019-12-17 66 [in_us] [facility] 13:09:00 [place] Physician s Weight 2019-12-17 161 [lb_av] [facility] 13::00 [place] Physician s Body mass index 2019-12-17 25.99 kg/m2 University o f (BMI) [Ratio] 13:09:00 [place] Physicia ns Body temperature 2019-12-17 97.2 [degF] Method: [facility] 13:09:00 Temporal [place] Physician s Heart Rate 2019-12-17 69 /min [facility] 13:09:00 [place] Physician s O2 SAT 2019-12-17 98 % Source: [facility] 13:09:00 [place] Physician s Procedures Procedure Date / Time Performing Clinician Source Performed MRI Brain wo contrast 2019-12-17 00:00:00 [facility] [id number] Physicians Colonoscopy 2017-01-17 00:00:[address] [facility] Mortezai ly Practice Splenectomy 1987-02-17 00:00:[address] [facility] Mort[facility] ly Practice History of Splenectomy [facility] Physicians History of Anterior University o [facility] cervical vertebral Physicians fusion Plan of Care Planned Activity Planned Date Details Comments Source Diagnostic Test 2020-04-12 glucose, Med Pineda ly Pending 00:00:00 fingerstick, blood Practice [code = glucose, fingerstick, blood] Diagnostic Test 2019-12-17 MRI Brain wo [place] [facility] Pending 00:00:00 contrast [id number] Physicians [code = 60465] Future Appointment 2020-07-10 García Narvaez 10:15:00 [id number]; [address], [place] [address] Future Appointment 2020-07-09 García Narvaez 00:00:00 [id number]; [address] [address] Encounters Start End Encounter Admission Attending Care Care Encounter Source Date/Time Date/Time Type Type Clinicians Facility Department ID 2020-04-12 2020-04-12 Heri KHOURY [place] - [id number] [facility] 00:00:00 00:00:00 Nancy Petty Medical - Practi mirella MD: [id number] [email or web address] e [address], [place] [address] , Ph. 2020-04-11 2020-04-11 Outpatient [facility] [id number] [place] 00:00:00 00:00:00 PEPE [address] 2020-02-15 2020-02-15 Laboratory Lab, [facility] [id number] 11:11:11 11:31:11 Only Fam Pob I Health [id number] [place] [id number] Professio [phone] nal [address] 2020-02-15 2020-02-15 Letter Doctor GLORIA [id number] 00:00:00 00:00:00 (Out) Unassigned, KIMANI [id number] [facility] [id number] [id number] 2020-02-15 2020-02-15 Telephone Lab, [facility] [id number] 00:00:00 00:00:00 Fam Pob I Health [id number] [place] [id number] Professio [phone] nal 044 [address] 2020-02-03 2020-02-03 Outpatient [facility] [id number] [place] 00:00:00 00:00:[address] 2020-01-27 2020-01-27 Appointmen XIOMY FARRELL Neurology - [id number] [facility] 16:00:00 16:00:00 t; MADINA FARRELL [place] ity of KATHERINE, M.D. [facility] Nolberto Ortiz [place] Physici ans 2020-01-17 2020-01-17 Outpatient [facility] [id number] [place] 00:00:00 00:00:00 PEPE [address] 2020-01-17 2020-01-17 Outpatient [facility] [id number] [place] 00:00:00 00:00:00 PEPE [address] 2019-12-17 2019-12-17 Appointmen XIOMY FARRELL Neurology - [id number] [facility] 13:00:00 13:00:00 t; MADINA FARRELL [place] ity of KATHERINE, M.D. Medical Nolberto Ortiz [place] Physici ans 2019-12-14 2019-12-14 Appointmen XIOMY NARAYANAN [id number] Univers 11:00:00 11:00:00 t; EEG, ADULTCLINIC it y of [facility]ULTCLINI [facility] Physici ans 2019-12-03 2019-12-03 Outpatient [facility] [id number] [place] 00:00:00 00:00:00 PEPE [address] 2019-12-02 2019-12-02 Heri VFP [place] - [id number] V illage 00:00:00 00:00:[address] [facility] Manas Duque - Pracduy vu MD: [id number] VM_HOU_[place] jeri Shadow [facility], [place] [address] , Ph. 2019-09-29 2019-09-29 [facility] [id number] [place] 00:00:00 00:00:00 PEPE [address] 2018-09-02 2018-09-02 Appointmen DEIRDRE, [facility] UTP [id number] Univers 10:15:00 10:15:00 t; Diana BRYANT Nolberto GILMORE M.D. Physi ci ans 2018-03-17 2018-03-17 Appointmen GLORIA VILLA, XIOMY UTP [id number] Univers 10:30:00 10:30:00 t; Diana VILLA M.D. [place] Physici ans 2017-12-16 2017-12-16 Appointmen GLORIA VILLA, [facility] UTP [id number] Univers 10:30:00 10:30:00 t; Diana VILLA M.D. [place] Physici ans Results Test Description Test Time Test Comments Results Result Comments Source EPITOME - Neuro Routine EEG 2019-12-14 11:34:01 Test Item Value Reference Range Interpretation Comme nts EEGREPORT (test code = SEE NOTES AND IMAGELINK N This awake and sleep EEG is EEGREPORT) within normal l imitsNo epileptiform di scharges or lateralizing si gns were seen [facility] PhysiciansHemoglobin A1c measurement device [id number] 14:35:04 Test Item Value Reference Range Interpretation Comments Hemoglobin A1C Fingerstick: (test code 6.4 = Hemoglobin A1C Fingerstick:) [facility] [id number] 07:44:00 Test Item Value Reference Range Interpretation Comments SODIUM (test code = 141 MMOL/L 137-145 N NA) POTASSIUM (test code = 4.2 MMOL/L 3.5-5.1 N K) CHLORIDE (test code = 106 MMOL/L 98-107 N CL) CARBON DIOXIDE (test 25 MMOL/L 22-30 N code = CO2) ANION GAP (test code = 14 MMOL/L 14-24 N GAP) GLUCOSE (test code = 141 MG/DL 74-106 H GLU) BLOOD UREA NITROGEN 26 MG/DL 9-20 H (test code = BUN) GLOMERULAR FILTRATION 60 Report ing units: RATE (test code = GFR) ml/mi n/1.73 m2 (Modified MDRD Formula)Referen ce Range: > or = 6 0 ml/min/1.73 m2 CREATININE (test code 1.20 MG/DL 0.66-1.25 N = CREAT) CALCIUM (test code = 10.4 MG/DL 8.4-10.2 H CA) LIPID PROFILE (CORONARY RISK)2018-07-25 07:44:00 Test Item Value Reference Range Interpretation Comments TRIGLYCERIDES (test 102 MG/DL TRIGLYCE RIDES code = TRIG) REFERENCE RANGE:Normal: < 150 mg/dLBorderline High: 150-199 mg/dLHi gh: 200-499 mg/dLVe ry High: >=500 mg/ dL CHOLESTEROL (test code 149 MG/DL <200 = CHOL) HDL CHOLESTEROL (test 63 MG/DL 40-59 H code = HDL) LIPOPROTEIN LDL (test 72 MG/DL 0-99 N code = LDL) OPTIMAL........ .<100 mg/dLNEAR OPTIMAL/ABOVE OPTIMAL........ .100-12 9 mg/dL BORDERLINE HIGH.........13 0-159 mg/dL HIGH.........16 0-189 mg/dL VERY HIGH...... ...>/= 190 mg/dL [id number] 07:44:00 Test Item Value Reference Range Interpretation Comments MAGNESIUM (test code = MAG) 2.1 MG/DL 1.6-2.3 N BASIC METABOLIC [id number] 07:32:00 Test Item Value Reference Range Interpretation Comments SODIUM (test code = 141 MMOL/L 137-145 N NA) POTASSIUM (test code = 4.2 MMOL/L 3.5-5.1 N K) CHLORIDE (test code = 106 MMOL/L 98-107 N CL) CARBON DIOXIDE (test 25 MMOL/L 22-30 N code = CO2) ANION GAP (test code = 14 MMOL/L 14-24 N GAP) GLUCOSE (test code = 141 MG/DL 74-106 H GLU) BLOOD UREA NITROGEN 26 MG/DL 9-20 H (test code = BUN) GLOMERULAR FILTRATION 60 Report ing units: RATE (test code = GFR) ml/mi n/1.73 m2 (Modified MDRD Formula)Referen ce Range: > or = 6 0 ml/min/1.73 m2 CREATININE (test code 1.20 MG/DL 0.66-1.25 N = CREAT) CALCIUM (test code = 10.4 MG/DL 8.4-10.2 H CA) LIPID PROFILE (CORONARY RISK)2018-07-25 07:32:00 Test Item Value Reference Range Interpretation Comments TRIGLYCERIDES (test 102 MG/DL TRIGLYCE RIDES code = TRIG) REFERENCE RANGE:Normal: < 150 mg/dLBorderline High: 150-199 mg/dLHi gh: 200-499 mg/dLVe ry High: >=500 mg/ dL CHOLESTEROL (test code 149 MG/DL <200 = CHOL) HDL CHOLESTEROL (test 63 MG/DL 40-59 H code = HDL) LIPOPROTEIN LDL (test MG/DL 0-99 code = LDL) [id number] 07:32:00 Test Item Value Reference Range Interpretation Comments MAGNESIUM (test code = MAG) 2.1 MG/DL 1.6-2.3 N PROTHROMBIN [id number] 07:25:00 Test Item Value Reference Range Interpretation Comments PROTHROMBIN TIME 11.1 SECONDS 9.6-11.6 N PATIENT (test code = PTP) INTERNATIONAL NORMAL 1.1 0.8-1.1 N The INR is to be RATIO (test code = used only for INR) monitoring oral anticoagulantth erap y. INDICATION I NR VALUE ---- ---- ---- -------1. Prophylaxis, de ep venous thrombos is, including hig h risk surgery. 2.0 - 3.0 2. Prophylaxis, de ep venous thrombos is, hip surgery, treatment for d eep venous thrombosis or pulmonary prevention of systemic emboli sm in patients wit h valvular heart disease, atrial fibrillation, tissue heart va lve, or acute myocar dial infarction. 2.0 - 3 .0 3. Mechanical prosthesis hear t valves, recurrent syste suzan embolism. 3.0 - 4.5 Comments to Rug Touch Up Painter: WILL BRING TO LABPTT [id number] 07:25:00 Test Item Value Reference Range Interpretation Comments PTT ACTIVATED (test code = APTT) 36.6 SECONDS 22.0-33.0 H Comments to Rug Touch Up Painter: WILL BRING TO LABCBC W/AUTO [id number] 07:12:00 Test Item Value Reference Range Interpretation Comments WHITE BLOOD CELL (test code = 5.2 K/MM3 3.8-9.8 N WBC) RED BLOOD CELL (test code = 4.14 M/MM3 3.95-5.67 N RBC) HEMOGLOBIN (test code = HGB) 12.2 G/DL 12.4-16.7 L HEMATOCRIT (test code = HCT) 37.2 % 35.9-49.5 N MEAN CELL VOLUME (test code = 90 fL 81.7-96.1 N MCV) MEAN CELL HGB (test code = MCH) 29.5 pg 27.6-33.2 N MEAN CELL HGB CONCETRATION 32.8 % 32.9-35.5 L (test code = MCHC) RED CELL DISTRIBUTION WIDTH 15.1 % 12.1-15.2 N (test code = RDW) PLATELET COUNT (test code = 402 K/MM3 129-368 H PLT) MEAN PLATELET VOLUME (test code 11.5 fl 7.4-10.4 H = MPV) NEUTROPHIL % (test code = NT%) 51.8 % 43-75 N IMMATURE GRANULOCYTE % (test 0.6 % 0.0-2.0 N code = IG%) LYMPHOCYTE % (test code = LY%) 32.4 % 14-44 N MONOCYTE % (test code = MO%) 11.9 % 4-13 N EOSINOPHIL % (test code = EO%) 2.9 % 0-6 N BASOPHIL % (test code = BA%) 0.4 % 0-2 N NUCLEATED RBC % (test code = 0.0 % 0-1.0 N NRBC%) NEUTROPHIL # (test code = NT#) 2.69 K/mm3 2.0-7.6 N IMMATURE GRANULOCYTE # (test 0.03 x10 3/uL 0-0.03 N code = IG#) LYMPHOCYTE # (test code = LY#) 1.68 K/mm3 1.0-3.8 N MONOCYTE # (test code = MO#) 0.62 K/mm3 0.1-0.8 N EOSINOPHIL # (test code = EO#) 0.15 K/mm3 0.0-0.2 N BASOPHIL # (test code = BA#) 0.02 K/mm3 0.0-0.2 N NUCLEATED RBC # (test code = 0.00 K/mm3 0.0-0.1 N NRBC#)
[2020-05-21 19:24] LABS: Absolute Lymphocytes (CBC) 0.6 K/uL (0.7-4.9); Basophils % 0.4 % (0-1.3); Hematocrit 36.4 % (39.6-49.0); Lymphocytes % 6.5 % (15.3-44.8); RBC Red Blood Cell Count 4.09 M/uL (4.33-5.43)
[2020-05-21 19:34] LABS: Protime INR 1.13
[2020-05-21] MEDS ORDERED: NA CHLORIDE 0.9% 2,000 ML ONE (19:36)
[2020-05-21] MEDS ORDERED: ACETAMINOPHEN 500 MG TAB ONE (19:36)
[2020-05-21 19:46] LABS: ALT/SGPT 32 U/L (12-78); AST/SGOT 17 U/L (15-37); Albumin 3.7 g/dL (3.4-5.0); Alkaline Phosphatase 64 U/L (45-117); Amylase 70 U/L (25-115); BUN Blood Urea Nitrogen 32 mg/dL (7-18); Bicarbonate 24 mmol/L (21-32); Bilirubin Direct 0.2 mg/dL (0-0.2); Bilirubin Total 0.6 mg/dL (0.2-1.0); CKMB Creatine Kinase MB < 1.0 ng/mL (0.3-3.6); Creatine Phosphokinase 69 U/L (39-308); Glucose Level 132 mg/dL (74-106); Lipase 240 U/L (73-393); Potassium 3.7 mmol/L (3.5-5.1); Protein, Total 7.5 g/dL (6.4-8.2); Sodium Level 140 mmol/L (136-145); Troponin (Emerg Dept Use Only) < 0.02 ng/mL (0.0-0.045)
[2020-05-21 19:47] LABS: Urine Blood Negative (Negative); Urine Glucose Negative (Negative); Urine Protein 2+ (Negative); Urine pH 5.5 (5.0-7.0)
[2020-05-21 19:55] LABS: Urine Bacteria NONE SEEN /HPF (NONE SEEN); Urine RBC NONE SEEN /HPF (NONE SEEN)
--- NOTE | 2020-05-21 20:03 | ER ---
Nurse's Notes [facility] Name: Keith Maynard Age: 69 yrs Sex: Male : 1950 Arrival Date: 05/21/2020 Time: 17:56 Bed 20 Private MD: Diagnosis: STEMI;Fever, unspecified Presentation: 05/21 18:09 Chief complaint: Patient states: "I was feeling achy and my took my temp and it jd3 was 102. I just feel crummy is all. one instance of vomiting.". Coronavirus screen: cough unrelated to allergies, fever, Client presents with at least one sign or symptom that may indicate coronavirus-19. Standard/surgical mask placed on the client. Provider contacted for isolation considerations. Ebola Screen: Patient negative for fever greater than or equal to 101.5 degrees Fahrenheit, and additional compatible Ebola Virus Disease symptoms. Initial Sepsis Screen: Does the patient meet any 2 criteria? No. Patient's initial sepsis screen is negative. Does the patient have a suspected source of infection? No. Patient's initial sepsis screen is negative. Risk Assessment: Do you want to hurt yourself or someone else? Patient reports no desire to harm self or others. Onset of symptoms was May 21, 2020. 18:09 Method Of Arrival: Ambulatory jd3 18:09 Acuity: ROBINSON 3 jd3 Historical: - Allergies: 18:13 PENICILLINS; jd3 - Home Meds: 18:13 losartan oral oral [Active]; jd3 - PMHx: 18:13 Diabetes - NIDDM; Hypertension; High Cholesterol; jd3 - PSHx: 18:13 vain sx; jd3 - Immunization history:: Adult Immunizations up to date. - Social history:: Smoking status: Patient denies any tobacco usage or history of. Screenin:13 Abuse screen: Denies threats or abuse. Denies injuries from another. Nutritional zb screening: No deficits noted. Tuberculosis screening: No symptoms or risk factors identified. Fall Risk None identified. Assessment: 19:27 General: Appears in no apparent distress. comfortable, Behavior is calm, cooperative, zb appropriate for age. General: Reports fatigue for 12-24 hours. Pain: Complains of pain in back Pain currently is 2 out of 10 on a pain scale. Quality of pain is described as aching. Neuro: Reports. Neuro: Level of Consciousness is awake, alert, obeys commands, Oriented to person, place, time, Moves all extremities. Full function. Cardiovascular: Capillary refill < 3 seconds in bilateral fingers Patient's skin is warm and dry. Respiratory: Airway is patent Respiratory effort is even, unlabored, Respiratory pattern is regular, symmetrical. GI: Abdomen is round Bowel sounds present X 4 quads. Abd is soft and non tender X 4 quads. Reports bloating, vomiting. Derm: Skin is intact, is healthy with good turgor, Skin is dry, Skin is normal, Skin temperature is warm. Musculoskeletal: Range of motion: intact in all extremities. 19:30 Reassessment: Per ECP order repeated EKG. zb 19:49 Reassessment: ECP at bedside discussing care with patient. zb 20:54 Reassessment: spoke with staff member at [facility] and are pending a bed assignment due to em being at saturation, they will contact administration and call back with a bed assignment if they have beds. 21:42 Reassessment: ECP at bedside discussing care with family and patient. zb 22:50 Reassessment: transfer instructions given to patient. report called and given to naomi harrell, RN [facility] nurse. Vital Signs: 18:13 BP 153 / 81; Pulse 91; Resp 17 S; Temp 101.2(O); Pulse Ox 100% on R/A; Weight 72.57 kg jd3 (R); Height 5 ft. 6 in. (167.64 cm) (R); Pain 4/10; 19:30 BP 140 / 70; Pulse 90; Resp 18; Pulse Ox 97% on R/A; zb 20:30 BP 132 / 65; Pulse 84; Resp 16; Temp 98.8; Pulse Ox 99% on R/A; zb 21:43 BP 126 / 62; Pulse 80; Resp 16; Pulse Ox 100% on R/A; zb 18:13 Body Mass Index 25.82 (72.57 kg, 167.64 cm) jd3 ED Course: 17:56 Patient arrived in ED. as 18:11 Triage completed. jd3 18:14 Arm band placed on. jd3 18:47 Avni Palma NP is PHCP. pm1 18:47 Brii Chappell MD is Attending Physician. pm1 18:52 Frieda Sheikh, MANDIE is Primary Nurse. zb 19:29 Patient has correct armband on for positive identification. monitoring coordinator on. Pulse zb ox on. NIBP on. Door closed. Noise minimized. 19:30 EKG done, COVID swab sent to lab. Flu and/or RSV swab sent to lab. zb 19:45 EKG done, by ED staff, reviewed by Avni Palma NP. zb 19:49 Chest Single View XRAY In Process Unspecified. EDMS 20:[address] [facility] with Tracee Cabrera. tt3 20:30 Tracee Cabrera called back with the Multiple Drill Operator to speak with Avni Palma NP, provider tt3 of pt. 20:43 Initiated transfer with Noni from [facility]. Informed Noni that Dr. Gann and Dr. thom Marks accepted the pt. Was told they had no beds and would have to decline the transfer request. Information passed on to Avni Palma NP, provider of pt. 22:49 No provider procedures requiring assistance completed. Patient transferred, IV remains zb in place. Administered Medications: 19:27 Drug: NS 0.9% (30 ml/kg) 30 ml/kg Route: IV; Rate: bolus; Site: right antecubital; zb 22:49 Follow up: Response: No adverse reaction; IV Status: Completed infusion; IV Intake: zb 2000ml 19:30 Drug: Acetaminophen 1000 mg Route: PO; zb 20:20 Follow up: Response: No adverse reaction; Temperature is decreased zb 20:13 Drug: Aspirin Chewable Tablet 324 mg Route: PO; zb 20:52 Follow up: Response: No adverse reaction zb 20:33 CANCELLED (Duplicate Order): Tylenol 1000 mg PO once zb 20:52 Drug: Lovenox (enoxaparin) 1 mg/kg Route: Sub-Q; Site: right lower abdomen; zb 22:39 Follow up: Response: No adverse reaction; Marked relief of symptoms zb 20:52 Drug: Nitro-Bid Ointment 2 % 1 inches Route: Transdermal; Site: anterior chest wall; zb 22:39 Follow up: Response: No adverse reaction zb Intake: 22:49 IV: 2000ml; Total: 2000ml. zb Outcome: 20:03 ER care complete, transfer ordered by . pm1 22:49 Transferred by ground EMS to [facility]. zb 22:49 Condition: stable 22:49 Instructed on the need for transfer, Demonstrated understanding of instructions. 22:51 Patient left the ED. [email or web address] Signatures: Dispatcher [employer] EDVon Casarez RN RN em Martinez, Amelia as Marinas, Patrick, MARKETING SALES MANAGER MARKETING SALES MANAGER pm1 Corky Amezquita RN RN lad3 Dino Mccall tt3 Frieda Sheikh RN RN zb Corrections: (The following items were deleted from the chart) 22:39 20:30 BP 132 / 65; Pulse 84bpm; Resp 16bpm; Pulse Ox 99% RA; zb zb
--- NOTE | 2020-05-21 20:03 | EDPHYS ---
Physician Documentation [facility] Name: Keith Maynard Age: 69 yrs Sex: Male : 1950 Arrival Date: 05/21/2020 Time: 17:56 Bed 20 Private MD: ED Physician Brii Chappell HPI: 05/21 18:32 This 69 yrs old Male presents to ER via Ambulatory with complaints of Fever, pm1 Vomiting. 18:32 The patient reports fever, not measured (subjective). Onset: The symptoms/episode pm1 began/occurred this morning. Modifying factors: possibly from bad food this AM or stomach virus. Associated signs and symptoms: Pertinent positives: epigastric pain and bloating with nausea, Pertinent negatives: cough, shortness of breath, chest pain. Severity of symptoms: in the emergency department the symptoms have resolved 1 hour(s) prior to arrival, . The patient has not experienced similar symptoms in the past. Patient presenting to the ER for fever, vomiting, and epigastric pain/bloating. Patient at breakfast, spicy [place] at 0800 and started having epigastric pain and nausea. [place] like heart burn to him and attributed to possibly too spicy food or bad food. This feeling continued on through lunch and gradually got worse until he vomited around 1700. Epigastric pain and nausea resolved and he is symptom free. He eventually came to the ER because his wanted him to be evaluated. Historical: - Allergies: 18:13 PENICILLINS; jd3 - Home Meds: 18:13 losartan oral oral [Active]; jd3 - PMHx: 18:13 Diabetes - NIDDM; Hypertension; High Cholesterol; jd3 - PSHx: 18:13 vain sx; jd3 - Immunization history:: Adult Immunizations up to date. - Social history:: Smoking status: Patient denies any tobacco usage or history of. ROS: 18:36 ENT: Negative for injury, pain, and discharge, Neck: Negative for injury, pain, and pm1 swelling, Cardiovascular: Negative for chest pain, palpitations, and edema, Respiratory: Negative for shortness of breath, cough, wheezing, and pleuritic chest pain. 18:36 Back: Negative for injury and pain, : Negative for injury, bleeding, discharge, and swelling, MS/Extremity: Negative for injury and deformity, Skin: Negative for injury, rash, and discoloration, Neuro: Negative for headache, weakness, numbness, tingling, and seizure. 18:36 Constitutional: Positive for body aches, fever, decreased appetite since breakfast, Negative for 18:36 Abdomen/GI: Positive for abdominal pain, nausea, of the epigastric area, bloating. Vomit x 1, Negative for diarrhea, constipation. Exam: 18:36 Constitutional: This is a well developed, well nourished patient who is awake, alert, pm1 and in no acute distress. Head/Face: Normocephalic, atraumatic. 18:36 Skin: Warm, dry with normal turgor. Normal color with no rashes, no lesions, and no evidence of cellulitis. MS/ Extremity: Pulses equal, no cyanosis. Neurovascular intact. Full, normal range of motion. 18:36 Chest/axilla: Exam negative for acute changes, Inspection: normal, Palpation: is normal. 18:36 Cardiovascular: Exam negative for acute changes, Rate: normal, Rhythm: regular, Pulses: no pulse deficits are appreciated, Heart sounds: normal, normal S1and S2, Edema: is not appreciated. 18:36 Respiratory: Exam negative for acute changes, respiratory distress, shortness of breath, Breath sounds: are clear throughout, no decreased breath sounds, no rales, rhonchi, no wheezing. 18:36 Abdomen/GI: Inspection: abdomen appears normal, Palpation: abdomen is soft and non-tender, in all quadrants, mass, is not appreciated. 18:36 Neuro: Exam negative for acute changes, Orientation: is normal, Mentation: is normal, Motor: is normal, moves all fours. Vital Signs: 18:13 BP 153 / 81; Pulse 91; Resp 17 S; Temp 101.2(O); Pulse Ox 100% on R/A; Weight 72.57 kg jd3 (R); Height 5 ft. 6 in. (167.64 cm) (R); Pain 4/10; 19:30 BP 140 / 70; Pulse 90; Resp 18; Pulse Ox 97% on R/A; zb 20:30 BP 132 / 65; Pulse 84; Resp 16; Temp 98.8; Pulse Ox 99% on R/A; zb 21:43 BP 126 / 62; Pulse 80; Resp 16; Pulse Ox 100% on R/A; zb 18:13 Body Mass Index 25.82 (72.57 kg, 167.64 cm) jd3 MDM: 19:08 Patient medically screened. pm1 19:49 Physician consultation: Arsen Turcios MD was contacted at 19:44, regarding consult, pm1 patient's condition, reviewed EKGs from today and prior EKG on record (2004), after a discussion of the case, a recommendation for transfer for higher level of care is made, No laborer rags available. 19:59 Data reviewed: vital signs. Data interpreted: Pulse oximetry: on room air is 100 %. pm1 Interpretation: normal. 19:59 Counseling: I had a detailed discussion with the patient and/or guardian regarding: the pm1 historical points, exam findings, and any diagnostic results supporting the discharge/admit diagnosis, lab results, the need to transfer to another facility, for higher level of care, [facility] does not immediately have the required specialist. 20:30 Physician consultation: Credit Assessment Analyst MD Fernandes regarding consult, patient's condition, pm1 and will see patient Give the patient ASA, Lovenox, Nitro paste 1 inch. Will contact the hospitalist to call us back . 20:45 Physician consultation: Hospital[facility]ie Gann was contacted at 20:40, regarding pm1 regarding transfer, patient's condition, Accepts patient to [facility]. Wants us to call transfer center and let them know that we spoke to Dr. Gann and he accepts the patient to [facility]. 05/21 18:32 Order name: C-Reactive Protein [facility] 05/21 18:32 Order name: Amylase, Serum [facility] 05/21 18:32 Order name: Basic Metabolic Panel [facility] 05/21 18:32 Order name: Blood Culture Adult (2) [facility] 05/21 18:32 Order name: CBC with Diff [facility] 05/21 18:32 Order name: Ckmb [facility] 05/21 18:32 Order name: CPK [facility] 05/21 18:32 Order name: Lactate [facility] 05/21 18:32 Order name: LFT's [facility] 05/21 18:32 Order name: Lipase [facility] 05/21 18:32 Order name: Procalcitonin; Complete Time: 20:03 [facility] 05/21 18:32 Order name: Protime (+inr); Complete Time: 19:47 md2 05/21 18:32 Order name: Ptt, Activated; Complete Time: 19:47 md2 05/21 18:32 Order name: Troponin (emerg Dept Use Only); Complete Time: 19:54 md2 05/21 18:32 Order name: Urine Microscopic Only; Complete Time: 20:03 md2 05/21 18:33 Order name: C-Reactive Protein; Complete Time: 19:52 EDMS 05/21 18:33 Order name: Amylase; Complete Time: 19:54 EDMS 05/21 18:33 Order name: Basic Metabolic Panel; Complete Time: 19:52 EDMS 05/21 20:40 Interpretation: Abnormal: CRE 1.36. pm1 / 18:33 Order name: Blood Culture EDWA 05/21 18:33 Order name: CBC with Automated Diff; Complete Time: 19:47 EDMS 05/21 18:33 Order name: CKMB Creatine Kinase MB; Complete Time: 19:54 EDMS 05/21 18:33 Order name: Creatine Phosphokinase; Complete Time: 19:54 EDMS 05/21 18:33 Order name: Lactate; Complete Time: 19:47 EDMS 05/21 18:33 Order name: Liver (Hepatic) Function; Complete Time: 19:54 EDMS 05/21 18:33 Order name: Lipase; Complete Time: 19:54 EDMS 05/21 18:50 Order name: Flu pm1 05/21 18:50 Order name: Strep pm1 05/21 18:50 Order name: COVID-19 : Document "Date of Symptom Onset" if Symptomatic. 05/21 18:51 Order name: Group A Streptococcus Rapid Sc; Complete Time: 20:39 EDMS 05/21 18:32 Order name: Chest Single View XRAY; Complete Time: 20:18 md2 05/21 18:32 Order name: Accucheck; Complete Time: 19:17 md2 05/21 18:32 Order name: Cardiac monitoring; Complete Time: 19:50 md2 05/21 18:32 Order name: EKG - Nurse/Tech; Complete Time: 19:50 [facility] 05/21 18:32 Order name: IV Saline Lock - Large Bore; Complete Time: 19:16 [facility] 05/21 18:32 Order name: Labs collected and sent; Complete Time: 19:16 md2 05/21 18:32 Order name: O2 Per Protocol; Complete Time: 19:16 md2 05/21 18:32 Order name: O2 Sat Monitoring; Complete Time: 19:16 md2 05/21 18:32 Order name: Urine Dipstick-Ancillary (obtain specimen); Complete Time: 19:51 md2 05/21 18:50 Order name: Droplet/Contact Precautions; Complete Time: 19:53 pm1 05/21 19:47 Order name: Urine Dipstick-Ancillary; Complete Time: 19:54 EDMS 05/21 20:22 Order name: Throat Culture EDMS 05/21 20:39 Order name: COVID-19/FLU A+B; Complete Time: 21:01 EDMS Administered Medications: 19:27 Drug: NS 0.9% (30 ml/kg) 30 ml/kg Route: IV; Rate: bolus; Site: right antecubital; zb 22:49 Follow up: Response: No adverse reaction; IV Status: Completed infusion; IV Intake: zb 2000ml 19:30 Drug: Acetaminophen 1000 mg Route: PO; zb 20:20 Follow up: Response: No adverse reaction; Temperature is decreased zb 20:13 Drug: Aspirin Chewable Tablet 324 mg Route: PO; zb 20:52 Follow up: Response: No adverse reaction zb 20:33 CANCELLED (Duplicate Order): Tylenol 1000 mg PO once zb 20:52 Drug: Lovenox (enoxaparin) 1 mg/kg Route: Sub-Q; Site: right lower abdomen; zb 22:39 Follow up: Response: No adverse reaction; Marked relief of symptoms zb 20:52 Drug: Nitro-Bid Ointment 2 % 1 inches Route: Transdermal; Site: anterior chest wall; zb 22:39 Follow up: Response: No adverse reaction zb Disposition: 05/21/20 20:03 Transfer ordered to Other Acute Care Facility. Diagnosis are STEMI, Fever, unspecified. - Reason for transfer: Higher level of care. - Accepting physician is Azeem DENNY. - Condition is Stable. - Problem is new. - Symptoms have improved. Addendum: 05/25/2020 19:09 Co-signature as Attending Physician, Brii Chappell MD. m a2 Signatures: Dispatcher [employer] EDMS Jossue Espinosa, SUPERVISOR SKI [employer]ODUCTION-C SUPERVISOR [employer]ODUCTION-Cla1 Avni Palma, VESSEL OPERATOR VESSEL OPERATOR pm1 Corky Amezquita, RN RN jd3 Brii Chappell MD MD ma2 Frieda Sheikh RN RN zb Corrections: (The following items were deleted from the chart) 05/21 19:49 18:51 Influenza Screen (A ordered. EDMS EDMS 19:49 18:51 CORONAVIRUS ordered. EDMS EDMS 20:33 20:14 Tylenol 1000 mg PO once ordered. pm1 zb 20:42 20:40 CRE 1.36. pm1 pm1 20:47 20:03 05/21/2020 20:03 Transfer ordered to [facility]. pm1 Diagnosis is STEMI. Reason for transfer: Higher level of care. Accepting physician is Credit Assessment Analyst. Condition is Stable. Problem is new. Symptoms have improved. pm1 20:56 20:45 Physician consultation: MD Geraldine Gann was contacted at 20:40, regarding pm1 regarding transfer, patient's condition, Accepts patient to [facility], pm1 21:57 19:49 Physician consultation: Arsen Turcios MD was contacted at 19:44, regarding pm1 consult, patient's condition, reviewed EKGs from today and prior EKG on record (2004), after a discussion of the case, a recommendation for transfer for higher level of care is made, pm1 22:51 20:47 05/21/2020 20:03 Transfer ordered to Other Acute Care Facility. Diagnosis is zb STEMI; Fever, unspecified. Reason for transfer: Higher level of care. Accepting physician is Azeem DENNY. Condition is Stable. Problem is new. Symptoms have improved. pm1
--- NOTE | 2020-05-21 20:17 | RAD REPORT ---
EXAM DESCRIPTION: RAD - Chest Single View - 05/21/2020 7:50 pm CLINICAL HISTORY: CONGESTION Chest pain. COMPARISON: Chest Single View dated 09/03/2017; CHEST PA AND LAT 2 VIEW dated 04/26/2015; CHEST PA AND LAT 2 VIEW dated 04/27/2012; CHEST PA AND LAT 2 VIEW dated 02/01/2008 FINDINGS: Portable technique limits examination quality. The lungs are grossly clear. The heart is normal in size. No displaced fractures.Postoperative clips are seen in the left upper quadrant. IMPRESSION: No acute intrathoracic process suspected.
[2020-05-21] MEDS ORDERED: ASPIRIN 81 MG CHEWABLE TABLET ONE (20:27)
[2020-05-21 20:39] LABS: SARS-COV-2 RT PCR NEGATIVE (NEGATIVE)
[2020-05-21] MEDS ORDERED: ENOXAPARIN 80 MG/0.8 ML SQ ONE (21:03)
[2020-05-21] MEDS ORDERED: NITROGLYCERIN 1 GM PKT TD ONE (21:03)
--- NOTE | 2020-05-22 08:56 | EKG ---
Test Date: 2020-05-21 Test Time: 19:38:14 Assistant Professor Of Sociology: RASHAD MEASUREMENT RESULTS: Intervals: Rate: 84 UT: 154 QRSD: 98 QT: 362 QTc: 427 [place]: P: 32 UT: 154 QRS: 13 T: 1 INTERPRETIVE STATEMENTS: Normal sinus rhythm ST elevation, consider anterolateral injury or acute infarct ACUTE ID / STEMI Abnormal ECG Compared to ECG 05/21/2020 19:31:33 No significant changes Electronically Signed On 05-22-20 08:55:15 CDT by Santana Ramirez
--- NOTE | 2020-05-22 08:56 | EKG ---
Test Date: 2020-05-21 Test Time: 19:31:33 Senior Instructional Designer: RASHAD MEASUREMENT RESULTS: Intervals: Rate: 84 CO: 150 QRSD: 88 QT: 360 QTc: 425 [place]: P: 41 CO: 150 QRS: 24 T: 12 INTERPRETIVE STATEMENTS: Normal sinus rhythm ST elevation, consider anterior injury or acute infarct ACUTE AK / STEMI Abnormal ECG Compared to ECG 07/09/2004 00:09:00 ST (T wave) deviation now present Myocardial infarct finding now present Electronically Signed On 05-22-20 08:55:15 CDT by Santana Ramirez
== END 2020-05-21 22:51 ==
LOC: ER 17:52
DX: I21.3 ST elevation (STEMI) myocardial infarction of unspecified site (principal); I10 Essential (primary) hypertension; E11.9 Type 2 diabetes mellitus without complications; E78.00 Pure hypercholesterolemia, unspecified; Z20.822 Contact with and (suspected) exposure to COVID-19; Z88.0 Allergy status to penicillin
CPT/HCPCS: 93005 ×2; 87040 ×2; 87070; 85025; 80048; 36415; 82150; 82550; 85610; 80076; 87081; 83605; 85730; 84484; 82553; 83690; 84145; 0240U; 86140; 71045; J7030; 81003; 81015; 87205; 96365; 96366; 96372; 99285

== ENCOUNTER 2022-01-07 14:48 | Emergency (ER) | payer MEDICARE ==
--- OUTSIDE RECORDS SUMMARY | 2022-01-07 14:56 | XMS REPORT | Continuity of Care Document ---
:1950 Author Organization [facility] t Address [address] [place] [address] [place] [address] Care Team Providers Name Role Phone Provider, Unknown Primary Care Physician Unavailable Luis Felipe Pryor Attending Clinician Unavailable Brown Richardson Attending Clinician Unavailable Lila Lopez Attending Clinician Unavailable Pepe Crowder MD Attending Clinician Adams_R Attending Clinician Unavailable BWilliams Attending Clinician Unavailable Daniel_T Attending Clinician Unavailable Oma Lee Attending Clinician ELOY CABALLERO Attending Clinician Unavailable Lab, Adc Fam Pob I Attending Clinician Unavailable Omaghomi PUBLIC HEALTH ENGINEER, Omayemi Attending Clinician OMAGHOMI, OMAYEMI Attending Clinician Unavailable Doctor Unassigned, [place] Attending Clinician Unavailable MADINA FARRELL M.D. Attending Clinician Unavailable EEG, ADULTCLINIC Attending Clinician Unavailable MANNY GILMORE M.D. Attending Clinician Unavailable GLORIA VILLA M.D. Attending Clinician Unavailable Lila Lopez Admitting Clinician Unavailable Adams_R Admitting Clinician Unavailable BWilliams Admitting Clinician Unavailable Daniel_T Admitting Clinician Unavailable Payers Payer Name Policy Type Policy Number Effective Date Expiration Date Azalia [facility] [id number] 2021 (MEDICARE 00:00:00 REPLACEMENT HMO) [facility] [id number] 2020 (MEDICARE 00:00:00 REPLACEMENT/ADVANTAG E - HMO) MEDICARE PART A \T\ [id number] 2016 B 00:00:00 [employer] INDEMNITY [id number] 2018 00:00:00 [employer]ET[employer] (INDEMNITY) [id number] 2000 00:00:00 MEDICARE B-[place]: [id number] 2016 NOVPriccut 00:00:00 Problems Condition Condition Condition Status Onset Resolution Last Treating Co mments Source Name Details Category Date Date Treatment Clinician Date Seizure Seizure Problem Active [place] disorder Disorder 5-24 Family 00:00: Practic 00 e Benign Benign Disease Active [facility] prostatic prostatic 8 hyperplasi hyperplasi 00:00: Ho spita a with a with 00 l urinary urinary frequency frequency Erectile Erectile Disease Active Metho di dysfunctio dysfunctio 09-28 n due to n due to 00:00: Hospit a arterial arterial 00 l insufficie insufficie ncy ncy Nocturnal Nocturnal Disease Active [facility] polyuria polyuria 12 st 00:00: Hospita 00 l Moderate Moderate Disease Active Metho di obstructiv obstructiv 812 st e sleep e sleep 00:00: Hospita apnea apnea 00 l Overweight Overweight Problem Active [facility] ill[facility] 6-13 Family 00:00: Practic 00 e Type 2 Type 2 Problem Active [facility] diabetes Diabetes 11-13 Family mellitus Mellitus 00:00: Practi c without without 00 e complicati Complicati on on Mixed Mixed Problem Active [facility] hyperlipid Hyperlipid 11-13 Fa marianne emia emia 00:00: Practic 00 e Benign Benign Problem Active [facility] prostatic Prostatic 11-13 Fami ly hypertroph Hypertroph 00:00: Pr actic y without y without 00 e outflow Outflow obstructio Obstructio n n Primary Primary Problem Active [facility] erectile Erectile 11-13 Family dysfunctio Dysfunctio 00:00: Pr actic n n 00 e Eruption Eruption Problem Active [place] [facility] 11-13 Family 00:00: Practic 00 e Influenza Influenza Problem Active Todd helen vaccine Vaccine 11-13 Family needed Needed 00:00: Practic 00 e Family Family Problem Active [facility] history of History of 11-13 Uma lopes stroke Stroke 00:00: Practic 00 e Clinical Clinical Problem Active [place] [facility] finding Finding 11-13 Family 00:00: Practic 00 e Psychogeni Psychogeni Problem Active [facility] c c 11-13 Family impotence Impotence 00:00: Prac tic 00 e Finding by Finding by Problem Active [facility] site Site 11-13 Family 00:00: Practic 00 e Finding of Finding of Problem Active [facility] urine Urine 11-13 Family substance Substance 00:00: Prac tic level Level 00 e Family Family Problem Active [facility] history of History of 11-13 Uma lopes cardiac Cardiac 00:00: Practic disorder Disorder 00 e Onychomyco Onychomyco Problem Active [facility] sis sis 11-13 Family 00:00: Practic 00 e Benign Benign Problem Active [facility] neoplastic Neoplastic 11-13 Uma lopes disease Disease 00:00: Practic 00 e Body mass Body Mass Problem Active Todd nickersone index Index 11-13 Family 25-29 - 25-29 - 00:00: Practic overweight Overweight 00 e Anemia Anemia Problem Active [facility] 11-13 Family 00:00: Practic 00 e Hypertensi Hypertensi Problem Active [facility] ill[facility] ve ve 11-13 Family disorder Disorder 00:00: Practi c 00 e Large Large Problem Active [facility] prostate Prostate 11-13 Family 00:00: Practic 00 e History of History of Problem Resolve [place] hyperchole hyperchole d Ph ysici sterolemia sterolemia an s Gastroesop GERD Problem Commo n hageal (gastroeso Spirit reflux phageal - [facility]I disease reflux St disease) [facility] [id number] Type 2 Problem Common diabetes Spirit mellitus - [facility] with other St project intern kes y Medical complicati Center on, without long-term current use of insulin [id number] History of Problem Co mmon BPH Spirit - [facility] [id number] PVD Problem Common (periphera Spirit l vascular - CHI disease) [facility] History of History of Problem Resolve [place] essential essential d Phys ici hypertensi hypertensi an s on on [id number] Dyslipidem Problem Co mmon ia Spirit - [facility] [id number] Seasonal Problem Comm on allergies [facility] [id number] Essential Problem Comm on hypertensi Spirit on - [facility] [id number] Asbestosis Problem Com mon Spirit - [facility] [id number] Post-splen Problem Co mmon ectomy Spirit - [facility] [id number] Chronic Problem Common obstructiv Spirit e - [facility]I pulmonary [facility] unspecifie Medica l d COPD Center type [id number] [place] [id number] right Spirit lower leg - [facility] [id number] Diabetic Problem Comm on retinopath Spirit y - CHI associated St with type [facility] 2 diabetes Medica l mellitus, Center macular edema presence unspecifie d, unspecifie d laterality , unspecifie d retinopath y severity [id number] Contusion Problem Co mmon [id number] of right Spirit lower leg, - [facility]I initial [facility] [id number] BPH loc w Problem Com mon urin Spirit obs/LUTS - [facility] [id number] GERD Problem Common without Spirit esophagiti - CHI s [facility] [id number] Dependence Problem Co mmon on other Spirit enabling - [facility] machines [facility] devices [facility] [id number] Erectile Problem Comm on dysfunctio Spirit n, - CHI unspecifie St d erectile [facility] dysfunctio Medica l n type Center History of History of Problem Resolve UT obstructiv obstructiv d Ph ysici e sleep e sleep ans apnea apnea Clavicle Clavicle Problem Active [facility] fracture fracture Physic i ans Closed Closed Problem Active [facility] fracture fracture Physic i of of ans multiple multiple ribs of ribs of right side right side with with routine routine healing, healing, subsequent subsequent encounter encounter Cervical Cervical Problem Active [facility] pain pain Physici ans Back pain Back pain Problem Active [facility] Physici ans Other Other Problem Active UT closed closed Physici nondisplac nondisplac an s ed ed fracture fracture of sixth of sixth cervical cervical vertebra vertebra with with routine routine healing, healing, subsequent subsequent encounter encounter Other Other Problem Active UT closed closed Physici fracture fracture ans of sixth of sixth thoracic thoracic vertebra vertebra with with routine routine healing, healing, subsequent subsequent encounter encounter Other Other Problem Active UT closed closed Physici fracture fracture ans of second of second lumbar lumbar vertebra vertebra with with routine routine healing, healing, subsequent subsequent encounter encounter Other Other Problem Active UT closed closed Physici nondisplac nondisplac an s ed ed fracture fracture of seventh of seventh cervical cervical vertebra vertebra with with routine routine healing, healing, subsequent subsequent encounter encounter Convulsion Convulsion Problem Active U T s, s, Physici unspecifie unspecifie an s d d convulsion convulsion type type Allergies, Adverse Reactions, Alerts Allergy Allergy Status Severity Reaction(s) Onset Inactive Treating Comm ents Source Name Type Date Date Clinician Penicill DA Active [place] BREAKS OUT [facility] [place] 05-22 00:00: [address] Penicill DA Active [place] [facility] ins 05-22 00:00: [address] Desmopre Propensi Active Seizure 2019-02 Metho di ssin ty to 02-26 adverse 00:00: Hospita reaction 00 l s to drug Penicill Propensi Active Hives Method i ins ty to 09-19 adverse 00:00: Hospita reaction 00 l s to drug Penicill DA Active U [facility] ins 09-19 00:00: [address] Penicill DA Active U [facility] ins 09-19 00:00: [address] Penicill Allergy Active UT ins to drug Physici (finding ans ) PENICILL Allergy Active [place] INS to Family substanc Practic e e NO KNOWN Drug Active Univers ALLERGIE Class ity of [facility] Family History Family Member Diagnosis Comments Start Date Stop Date Source Mother Family history of [place] Phys icians Parkinson's disease Social History Social Habit Start Date Stop Date Quantity Comments Source History of Common Spirit - Tobacco Use [facility] History [facility] Drinks History [facility] Alcohol intake 2020-02-06 2020-02-06 Lifetime [facility] 00:00:00 00:00:00 non-drinker Hospital (finding) History [facility] 2020-02-03 2020-02-03 1 [facility] Alcohol Frequency 00:00:00 00:00:00 Hospita l Tobacco use and 2019-09-29 2019-09-29 Smokeless tobacco [facility] exposure 00:00:00 00:00:00 non-user Hospital Sex Assigned At [birth year] SAMANTHA [place] kes 00:00:00 [facility]:00 [facility] Center Smoking Status Start Date Stop Date Source Unknown if ever smoked [facility] Never Smoker Common [facility] - [facility] Medications Ordered Filled Start Stop Current Ordering Indication Dosage Frequency Signature Comments Components Source Medication Medication Date Date Medication? Clinician (SIG) Name Name tadalafiL Yes TAKE ONE Meth brando (CIALIS) 5 - (1) st MG tablet 00:00: TABLET(S) Hos ziggy 00 BY MOUTH l DAILY NEEDED FOR ERECTILE DYSFUNCTIO N. Bactrim DS Bactrim DS 2021- No 1{table BID Bactrim DS 800-160 MG 800-160 MG 11-02 t} 800-160 MG 00:00: 00:00 00 :00 Bactrim DS Bactrim DS 2021- No 1{table BID Bactrim DS 800-160 MG 800-160 MG 11-02 t} 800-160 MG 00:00: 00:00 00 :00 Bactrim DS Bactrim DS 2021- No 1{table BID Bactrim DS 800-160 MG 800-160 MG 11-02 t} 800-160 MG 00:00: 00:00 00 :00 Bactrim DS Bactrim DS 2021- No 1{table BID Bactrim DS 800-160 MG 800-160 MG 11-02 t} 800-160 MG 00:00: 00:00 00 :00 Bactrim DS Bactrim DS 2021- No 1{table BID Bactrim DS 800-160 MG 800-160 MG 11-02 t} 800-160 MG 00:00: 00:00 00 :00 Bactrim DS Bactrim DS 2021- No 1{table BID Bactrim DS 800-160 MG 800-160 MG 11-02 t} 800-160 MG 00:00: 00:00 00 :00 Benzonatate Benzonatate 2021- No TID Benzonatat 200 MG 200 MG 08-1408 e 200 MG 00:00: 00:00 00 :00 Benzonatate Benzonatate 2021- No TID Benzonatat 200 MG 200 MG 08-1408 e 200 MG 00:00: 00:00 00 :00 One Touch One Touch 0 No One Touch Glucose Glucose 3-16 Glucose Monitor N/S Monitor N/S 00:00: Monitor 00 N/S Lancets 30G Lancets 30G 0 No BID Lancets - - 3-16 30G - 00:00: 00 One Touch One Touch 0 No One Touch Glucose Glucose 3-16 Glucose Monitor N/S Monitor N/S 00:00: Monitor 00 N/S Lancets 30G Lancets 30G 0 No BID Lancets - - 3-16 30G - 00:00: 00 One Touch One Touch 0 No One Touch Glucose Glucose 3-16 Glucose Monitor N/S Monitor N/S 00:00: Monitor 00 N/S Lancets 30G Lancets 30G 0 No BID Lancets - - 3-16 30G - 00:00: 00 One Touch One Touch 0 2022- No BID One Touch Verio n/s Verio n/s 3-16 03-10 Verio n/s 00:00: 00:00 00 :00 One Touch One Touch 0 2022- No BID One Touch Verio n/s Verio n/s 3-16 03-10 Verio n/s 00:00: 00:00 00 :00 One Touch One Touch 0 2022- No BID One Touch Verio n/s Verio n/s 3-16 03-10 Verio n/s 00:00: 00:00 00 :00 tadalafiL 2020-02- No TAKE ONE Met [facility] (CIALIS) 5 1-09 11-28 (1) TABLET st MG tablet 00:00: 00:00 (5 MG Hospit a 00 :00 TOTAL) BY l MOUTH DAILY NEEDED FOR ERECTILE DYSFUNCTIO N FOR UP TO 30 DAYS. simvastatin 2019- Yes Q24H daily. Meth brando (ZOCOR) 20 2-17 st mg tablet 13:42: Hospita 12 l amLODIPine 2019-02 Yes 5mg QD Take 5 mg Me th[facility] (NORVASC) 5 2-[address] mg tablet 13:36: daily. Hospit a 18 l atorvastati 2019-02 Yes 40mg QD Take 40 mg Methodi n (LIPITOR) 2-[address] 40 mg 13:36: daily. Hospita tablet 18 l clopidogreL 2019-02 Yes 75mg QD Take 75 mg Methodi (PLAVIX) 75 2-[address] mg tablet 13:36: daily. Hospit a 18 l fenofibrate 2019-02 Yes 145mg QD Take 145 M ethodi (TRICOR) 2-[address] 145 MG 13:36: mouth Hospita tablet 18 daily. l losartan-hy 2019-02 Yes 1{tbl} QD Take 1 Me th[facility] drochloroth 2-[address] iazide 13:36: mouth Hospita (HYZAAR) 18 daily. l 100-12.5 mg per tablet metFORMIN 2019-02 Yes 500mg Q.5D Take 500 Met [facility] (GLUCOPHAGE 2-[address] ) 500 mg 13:36: mouth 2 Hospit a tablet 18 (two) l times a day with meals. oxybutynin 2019-02 Yes 5mg Q.[id number] Take 5 mg Methodi (DITROPAN) 2-17 [id number] mouth 3 [address] 5 MG tablet 13:36: 3D (three) Hos ziggy 18 times a l day. tamsulosin 2019-02 Yes .4mg QD Take 0.4 Met hodi (FLOMAX) 2-[address] 0.4 mg 13:36: mouth Hospita capsule 18 daily with l dinner. aspirin 2019-02 Yes 81mg QD Take 81 mg Meth brando (ECOTRIN) 2-[address] 81 MG 13:36: daily. Hospita enteric 18 l coated tablet metFORMIN 2019-02 Yes 500mg Q.5D Take 500 Met [facility] XR 2-[address] (GLUCOPHAGE 00:00: mouth 2 Hos ziggy -XR) 500 mg 00 (two) l 24 hr times a tablet day. OneTouch Yes USE ONCE A [facility] Verio test 9-[address] strips 00:00: Hospita strip test 00 l strips OneTouch Yes USE ONCE A [facility] Delica 9-[address] Lancets 33 00:00: E11.9 Hospit a gauge misc 00 l Fluad Quad Yes ADM 0.5ML Me thodi ,66y 8-[address] up,,PF, 60 00:00: Hospita mcg (15 mcg 00 l x 4)/0.5 mL syringe [facility] 2017-02 No 40mg Common (Triamcinol (Triamcinol 2-28 S pirit one) one) 00:00: - [facility] 2017-02 No 40mg Common (Triamcinol (Triamcinol 2-28 S pirit one) one) 00:00: - [facility] 2017-02 No 40mg Common (Triamcinol (Triamcinol 2-28 S pirit one) one) 00:00: - [facility] Camila 2017-02 No 40mg Common (Triamcinol (Triamcinol 2-28 S pirit one) one) 00:00: - [facility] Benzonatate Benzonatate 2017-02 No 1{capsu TID Benzonatat 200 MG 200 MG 2-28 le} e 200 MG 00:00: 00 Flonase 50 Flonase 50 2017-02 No QD Flonase 50 MCG/ACT MCG/ACT 2-28 MCG/ACT 00:00: 00 Camila Jensen 2017-02 No 40mg Common (Triamcinol (Triamcinol 2-28 S pirit one) one) 00:00: - [facility] Benzonatate Benzonatate 2017-02 No 1{capsu TID Benzonatat 200 MG 200 MG 2-28 le} e 200 MG 00:00: 00 Flonase 50 Flonase 50 2017-02 No QD Flonase 50 MCG/ACT MCG/ACT 2-28 MCG/ACT 00:00: 00 Camila Jensen 2017-02 No 40mg Common (Triamcinol (Triamcinol 2-28 S pirit one) one) 00:00: - [facility] Benzonatate Benzonatate 2017-02 No 1{capsu TID Benzonatat 200 MG 200 MG 2-28 le} e 200 MG 00:00: 00 Flonase 50 Flonase 50 2017- No QD Flonase 50 MCG/ACT MCG/ACT 2-28 MCG/ACT 00:00: 00 Camila Jensen 2017- No 40mg Common (Triamcinol (Triamcinol 2-28 S pirit one) one) 00:00: - CHI 00 [facility] Camila Jensen 2017- No 40mg Common (Triamcinol (Triamcinol 2-28 S pirit one) one) 00:00: - CHI 00 [facility] Camila Jensen 2017- No 40mg Common (Triamcinol (Triamcinol 2-28 S pirit one) one) 00:00: - CHI 00 [facility] Camial Jensen 2017- No 40mg Common (Triamcinol (Triamcinol 2-28 S pirit one) one) 00:00: - [facility]I 00 [facility] Camila Jensen 2017- No 40mg Common (Triamcinol (Triamcinol 2-28 S pirit one) one) 00:00: - [facility]I 00 [facility] Camila Jnesen 2017- No 40mg Common (Triamcinol (Triamcinol 2-28 S pirit one) one) 00:00: - [facility]I 00 [facility] Camila Jensen 2017- No 40mg Common (Triamcinol (Triamcinol 2-28 S pirit one) one) 00:00: - CHI 00 [facility] Camila Jensen 2017- No 40mg Common (Triamcinol (Triamcinol 2-28 S pirit one) one) 00:00: - [facility]I 00 [facility] Camila Jensen 2017- No 40mg Common (Triamcinol (Triamcinol 2-28 S pirit one) one) 00:00: - CHI 00 [facility] Camila Jensen 2017- No 40mg Common (Triamcinol (Triamcinol 2-28 S pirit one) one) 00:00: - [facility]I 00 [facility] Camila Jensen 2018-1 No 40mg Common (Triamcinol (Triamcinol 2-28 S pirit one) one) 00:00: - [facility]I 00 [facility] Camila Jensen 2017- No 40mg Common (Triamcinol (Triamcinol 2-28 S pirit one) one) 00:00: - [facility]I 00 [facility] Camila Jensen 2017- No 40mg Common (Triamcinol (Triamcinol 2-28 S pirit one) one) 00:00: - [facility]I 00 [facility] Camila Jensen 2017- No 40mg Common (Triamcinol (Triamcinol 2-28 S pirit one) one) 00:00: - [facility]I 00 [facility] Camila Jensen 2017- No 40mg Common (Triamcinol (Triamcinol 2-28 S pirit one) one) 00:00: - [facility]I 00 [facility] Camila Jensen 2017- No 40mg Common (Triamcinol (Triamcinol 2-28 S pirit one) one) 00:00: - [facility]I 00 [facility] Camila Kengoldy 2017-02 No 40mg Common (Triamcinol (Triamcinol 2-28 S pirit one) one) 00:00: - [facility]I 00 [facility] Camila Jensen 2017-02 No 40mg Common (Triamcinol (Triamcinol 2-28 S pirit one) one) 00:00: - [facility]I 00 [facility] Gabapentin Gabapentin 2018-0 Yes GLORIA VILLA i po q 8H UT 100 MG Oral 100 MG Oral 7-31 M.D. P hysici Capsule Capsule 00:00: ans 00 Aspirin 81 Aspirin 81 No 1{table QD Aspirin 81 81 MG 81 MG t} 81 MG Clopidogrel Clopidogrel No Clopidogre Bisulfate Bisulfate l 75 MG 75 MG Bisulfate 75 MG Losartan Losartan No QD Losartan Potassium-H Potassium-H Potassium- CTZ CTZ HCTZ 100-12.5 MG 100-12.5 MG 100-12.5 MG metFORMIN metFORMIN No 1{table BID metFORMIN HCl 500 MG HCl 500 MG t_with_ HCl 500 MG a_meal} Tadalafil Tadalafil No 1{table QD Tadalafil 10 MG 10 MG t} 10 MG Pantoprazol Pantoprazol No 1{table QD Pantoprazo e Sodium 40 e Sodium 40 t} le Sodium MG MG 40 MG Cephalexin Cephalexin No 1{capsu QID Cephalexin 500 MG 500 MG le} 500 MG Fenofibrate Fenofibrate No Fenofibrat 145 MG 145 MG e 145 MG Bactrim DS Bactrim DS No 1{table BID Bactrim DS 800-160 MG 800-160 MG t} 800-160 MG Atorvastati Atorvastati No 1{table QD Atorvastat n Calcium n Calcium t} in Calcium 40 MG 40 MG 40 MG amLODIPine amLODIPine No 1{table QD amLODIPine Besylate 10 Besylate 10 t} Besylate MG MG 10 MG metFORMIN metFORMIN No 1{table BID metFORMIN HCl 500 MG HCl 500 MG t_with_ HCl 500 MG a_meal} Bactrim DS Bactrim DS No 1{table BID Bactrim DS 800-160 MG 800-160 MG t} 800-160 MG Clopidogrel Clopidogrel No Clopidogre Bisulfate Bisulfate l 75 MG 75 MG Bisulfate 75 MG Benzonatate Benzonatate No 1{capsu TID Benzonatat 200 MG 200 MG le} e 200 MG Fenofibrate Fenofibrate No Fenofibrat 145 MG 145 MG e 145 MG Atorvastati Atorvastati No 1{table QD Atorvastat n Calcium n Calcium t} in Calcium 40 MG 40 MG 40 MG amLODIPine amLODIPine No 1{table QD amLODIPine Besylate 10 Besylate 10 t} Besylate MG MG 10 MG Naproxen Naproxen No BID Naproxen 500 MG 500 MG 500 MG Aspirin 81 Aspirin 81 No 1{table QD Aspirin 81 81 MG 81 MG t} 81 MG Pantoprazol Pantoprazol No 1{table QD Pantoprazo e Sodium 40 e Sodium 40 t} le Sodium MG MG 40 MG Tadalafil Tadalafil No 1{table QD Tadalafil 10 MG 10 MG t} 10 MG Losartan Losartan No QD Losartan Potassium-H Potassium-H Potassium- CTZ CTZ HCTZ 100-12.5 MG 100-12.5 MG 100-12.5 MG Cephalexin Cephalexin No 1{capsu QID Cephalexin 500 MG 500 MG le} 500 MG Clopidogrel Clopidogrel No Clopidogre Bisulfate Bisulfate l 75 MG 75 MG Bisulfate 75 MG Losartan Losartan No QD Losartan Potassium-H Potassium-H Potassium- CTZ CTZ HCTZ 100-12.5 MG 100-12.5 MG 100-12.5 MG Tadalafil Tadalafil No 1{table QD Tadalafil 10 MG 10 MG t} 10 MG Fenofibrate Fenofibrate No Fenofibrat 145 MG 145 MG e 145 MG Aspirin 81 Aspirin 81 No 1{table QD Aspirin 81 81 MG 81 MG t} 81 MG Naproxen Naproxen No BID Naproxen 500 MG 500 MG 500 MG Pantoprazol Pantoprazol No 1{table QD Pantoprazo e Sodium 40 e Sodium 40 t} le Sodium MG MG 40 MG Benzonatate Benzonatate No 1{capsu TID Benzonatat 200 MG 200 MG le} e 200 MG amLODIPine amLODIPine No 1{table QD amLODIPine Besylate 10 Besylate 10 t} Besylate MG MG 10 MG Sulfamethox Sulfamethox No 1{table BID Sulfametho azole-Trime azole-Trime t} xazole-Tri thoprim thoprim methoprim 800-160 MG 800-160 MG 800-160 MG Cephalexin Cephalexin No 1{capsu QID Cephalexin 500 MG 500 MG le} 500 MG Atorvastati Atorvastati No 1{table QD Atorvastat n Calcium n Calcium t} in Calcium 40 MG 40 MG 40 MG Bactrim DS Bactrim DS No 1{table BID Bactrim DS 800-160 MG 800-160 MG t} 800-160 MG metFORMIN metFORMIN No 1{table BID metFORMIN HCl 500 MG HCl 500 MG t_with_ HCl 500 MG a_meal} Clopidogrel Clopidogrel No Clopidogre Bisulfate Bisulfate l 75 MG 75 MG Bisulfate 75 MG Losartan Losartan No QD Losartan Potassium-H Potassium-H Potassium- CTZ CTZ HCTZ 100-12.5 MG 100-12.5 MG 100-12.5 MG Tadalafil Tadalafil No 1{table QD Tadalafil 10 MG 10 MG t} 10 MG Fenofibrate Fenofibrate No Fenofibrat 145 MG 145 MG e 145 MG Aspirin 81 Aspirin 81 No 1{table QD Aspirin 81 81 MG 81 MG t} 81 MG Naproxen Naproxen No BID Naproxen 500 MG 500 MG 500 MG Pantoprazol Pantoprazol No 1{table QD Pantoprazo e Sodium 40 e Sodium 40 t} le Sodium MG MG 40 MG Benzonatate Benzonatate No 1{capsu TID Benzonatat 200 MG 200 MG le} e 200 MG amLODIPine amLODIPine No 1{table QD amLODIPine Besylate 10 Besylate 10 t} Besylate MG MG 10 MG Sulfamethox Sulfamethox No 1{table BID Sulfametho azole-Trime azole-Trime t} xazole-Tri thoprim thoprim methoprim 800-160 MG 800-160 MG 800-160 MG Cephalexin Cephalexin No 1{capsu QID Cephalexin 500 MG 500 MG le} 500 MG Atorvastati Atorvastati No Atorvastat n Calcium n Calcium in Calcium 40 MG 40 MG 40 MG Bactrim DS Bactrim DS No 1{table BID Bactrim DS 800-160 MG 800-160 MG t} 800-160 MG metFORMIN metFORMIN No 1{table BID metFORMIN HCl 500 MG HCl 500 MG t_with_ HCl 500 MG a_meal} Vitamin C Vitamin C No 1{table QD Vitamin C 1000 MG 1000 MG t} 1000 MG Fenofibrate Fenofibrate No 1{table QD Fenofibrat 145 MG 145 MG t} e 145 MG Vitamin D3 Vitamin D3 No 1{capsu QD Vitamin D3 50 MCG 50 MCG le} 50 MCG (1999) (1999) (1999) amLODIPine amLODIPine No 1{table QD amLODIPine Besylate 5 Besylate 5 t} Besylate 5 MG MG MG Tadalafil Tadalafil No QD Tadalafil 10 MG 10 MG 10 MG amLODIPine amLODIPine No amLODIPine Besylate 5 Besylate 5 Besylate 5 MG MG MG Atorvastati Atorvastati No 1{table QD Atorvastat n Calcium n Calcium t} in Calcium 40 MG 40 MG 40 MG Zinc 50 MG Zinc 50 MG No 1{table QD Zinc 50 MG t} Losartan Losartan No Losartan Potassium-H Potassium-H Potassium- CTZ CTZ HCTZ 100-12.5 MG 100-12.5 MG 100-12.5 MG Clopidogrel Clopidogrel No 1{table QD Clopidogre Bisulfate Bisulfate t} l 75 MG 75 MG Bisulfate 75 MG Pantoprazol Pantoprazol No Pantoprazo e Sodium 40 e Sodium 40 le Sodium MG MG 40 MG Pantoprazol Pantoprazol No 1{table QD Pantoprazo e Sodium 40 e Sodium 40 t} le Sodium MG MG 40 MG metFORMIN metFORMIN No 1{table BID metFORMIN HCl 500 MG HCl 500 MG t_with_ HCl 500 MG a_meal} hydroCHLORO hydroCHLORO No hydroCHLOR thiazide thiazide Othiazide Tamsulosin Tamsulosin No Tamsulosin HCl HCl HCl Vitamin E Vitamin E No 1{capsu QD Vitamin E 180 MG 180 MG le} 180 MG Multivitami Multivitami No Multivitam n n in Finasteride Finasteride No Finasterid 5 MG 5 MG e 5 MG Losartan Losartan No Losartan Potassium-H Potassium-H Potassium- CTZ CTZ HCTZ 100-12.5 MG 100-12.5 MG 100-12.5 MG metFORMIN metFORMIN No metFORMIN HCl 500 MG HCl 500 MG HCl 500 MG losartan losartan No losartan Aspirin 81 Aspirin 81 No 1{table QD Aspirin 81 81 MG 81 MG t} 81 MG levETIRAcet levETIRAcet No levETIRAce am 250 MG am 250 MG rausch 250 MG Fenofibrate Fenofibrate No Fenofibrat 145 MG 145 MG e 145 MG metFORMIN metFORMIN No metFORMIN HCl ER 500 HCl ER 500 HCl ER 500 MG MG MG Atorvastati Atorvastati No 1{table QD Atorvastat n Calcium n Calcium t} in Calcium 40 MG 40 MG 40 MG amLODIPine amLODIPine No 1{table QD amLODIPine Besylate 5 Besylate 5 t} Besylate 5 MG MG MG Pantoprazol Pantoprazol No Pantoprazo e Sodium 40 e Sodium 40 le Sodium MG MG 40 MG losartan losartan No losartan Vitamin E Vitamin E No 1{capsu QD Vitamin E 180 MG 180 MG le} 180 MG Losartan Losartan No Losartan Potassium-H Potassium-H Potassium- CTZ CTZ HCTZ 100-12.5 MG 100-12.5 MG 100-12.5 MG levETIRAcet levETIRAcet No levETIRAce am 250 MG am 250 MG rausch 250 MG Clopidogrel Clopidogrel No Clopidogre Bisulfate Bisulfate l 75 MG 75 MG Bisulfate 75 MG Finasteride Finasteride No Finasterid 5 MG 5 MG e 5 MG hydroCHLORO hydroCHLORO No hydroCHLOR thiazide thiazide Othiazide metFORMIN metFORMIN No metFORMIN HCl ER 500 HCl ER 500 HCl ER 500 MG MG MG Tadalafil Tadalafil No QD Tadalafil 10 MG 10 MG 10 MG Multivitami Multivitami No Multivitam n n in metFORMIN metFORMIN No metFORMIN HCl 500 MG HCl 500 MG HCl 500 MG Aspirin 81 Aspirin 81 No 1{table QD Aspirin 81 81 MG 81 MG t} 81 MG Atorvastati Atorvastati No 1{table QD Atorvastat n Calcium n Calcium t} in Calcium 40 MG 40 MG 40 MG Zinc 50 MG Zinc 50 MG No 1{table QD Zinc 50 MG t} Vitamin C Vitamin C No 1{table QD Vitamin C 1000 MG 1000 MG t} 1000 MG Tamsulosin Tamsulosin No Tamsulosin HCl HCl HCl Fenofibrate Fenofibrate No Fenofibrat 145 MG 145 MG e 145 MG Atorvastati Atorvastati No 1{table QD Atorvastat n Calcium n Calcium t} in Calcium 40 MG 40 MG 40 MG amLODIPine amLODIPine No amLODIPine Besylate 5 Besylate 5 Besylate 5 MG MG MG Pantoprazol Pantoprazol No 1{table QD Pantoprazo e Sodium 40 e Sodium 40 t} le Sodium MG MG 40 MG Vitamin D3 Vitamin D3 No 1{capsu QD Vitamin D3 50 MCG 50 MCG le} 50 MCG (1999) (1999) (1999) metFORMIN metFORMIN No 1{table BID metFORMIN HCl 500 MG HCl 500 MG t_with_ HCl 500 MG a_meal} Fenofibrate Fenofibrate No 1{table QD Fenofibrat 145 MG 145 MG t} e 145 MG amLODIPine amLODIPine No 1{table QD amLODIPine Besylate 5 Besylate 5 t} Besylate 5 MG MG MG Pantoprazol Pantoprazol No Pantoprazo e Sodium 40 e Sodium 40 le Sodium MG MG 40 MG losartan losartan No losartan Vitamin E Vitamin E No 1{capsu QD Vitamin E 180 MG 180 MG le} 180 MG Losartan Losartan No Losartan Potassium-H Potassium-H Potassium- CTZ CTZ HCTZ 100-12.5 MG 100-12.5 MG 100-12.5 MG levETIRAcet levETIRAcet No levETIRAce am 250 MG am 250 MG rausch 250 MG Clopidogrel Clopidogrel No Clopidogre Bisulfate Bisulfate l 75 MG 75 MG Bisulfate 75 MG Finasteride Finasteride No Finasterid 5 MG 5 MG e 5 MG hydroCHLORO hydroCHLORO No hydroCHLOR thiazide thiazide Othiazide metFORMIN metFORMIN No metFORMIN HCl ER 500 HCl ER 500 HCl ER 500 MG MG MG Tadalafil Tadalafil No QD Tadalafil 10 MG 10 MG 10 MG Multivitami Multivitami No Multivitam n n in metFORMIN metFORMIN No metFORMIN HCl 500 MG HCl 500 MG HCl 500 MG Aspirin 81 Aspirin 81 No 1{table QD Aspirin 81 81 MG 81 MG t} 81 MG Atorvastati Atorvastati No 1{table QD Atorvastat n Calcium n Calcium t} in Calcium 40 MG 40 MG 40 MG Zinc 50 MG Zinc 50 MG No 1{table QD Zinc 50 MG t} Vitamin C Vitamin C No 1{table QD Vitamin C 1000 MG 1000 MG t} 1000 MG Tamsulosin Tamsulosin No Tamsulosin HCl HCl HCl Fenofibrate Fenofibrate No Fenofibrat 145 MG 145 MG e 145 MG Atorvastati Atorvastati No 1{table QD Atorvastat n Calcium n Calcium t} in Calcium 40 MG 40 MG 40 MG amLODIPine amLODIPine No amLODIPine Besylate 5 Besylate 5 Besylate 5 MG MG MG Pantoprazol Pantoprazol No 1{table QD Pantoprazo e Sodium 40 e Sodium 40 t} le Sodium MG MG 40 MG Vitamin D3 Vitamin D3 No 1{capsu QD Vitamin D3 50 MCG 50 MCG le} 50 MCG (1999) (1999) (1999) metFORMIN metFORMIN No 1{table BID metFORMIN HCl 500 MG HCl 500 MG t_with_ HCl 500 MG a_meal} Fenofibrate Fenofibrate No 1{table QD Fenofibrat 145 MG 145 MG t} e 145 MG Pantoprazol Pantoprazol No 1{table QD Pantoprazo e Sodium 40 e Sodium 40 t} le Sodium MG MG 40 MG Losartan Losartan No Losartan Potassium-H Potassium-H Potassium- CTZ CTZ HCTZ 100-12.5 MG 100-12.5 MG 100-12.5 MG Atorvastati Atorvastati No 1{table QD Atorvastat n Calcium n Calcium t} in Calcium 40 MG 40 MG 40 MG Fenofibrate Fenofibrate No 1{table QD Fenofibrat 145 MG 145 MG t} e 145 MG Tadalafil Tadalafil No QD Tadalafil 10 MG 10 MG 10 MG Clopidogrel Clopidogrel No 1{table QD Clopidogre Bisulfate Bisulfate t} l 75 MG 75 MG Bisulfate 75 MG Aspirin 81 Aspirin 81 No 1{table QD Aspirin 81 81 MG 81 MG t} 81 MG metFORMIN metFORMIN No 1{table BID metFORMIN HCl 500 MG HCl 500 MG t_with_ HCl 500 MG a_meal} amLODIPine amLODIPine No 1{table QD amLODIPine Besylate 5 Besylate 5 t} Besylate 5 MG MG MG Pantoprazol Pantoprazol No 1{table QD Pantoprazo e Sodium 40 e Sodium 40 t} le Sodium MG MG 40 MG Losartan Losartan No Losartan Potassium-H Potassium-H Potassium- CTZ CTZ HCTZ 100-12.5 MG 100-12.5 MG 100-12.5 MG Atorvastati Atorvastati No 1{table QD Atorvastat n Calcium n Calcium t} in Calcium 40 MG 40 MG 40 MG Fenofibrate Fenofibrate No 1{table QD Fenofibrat 145 MG 145 MG t} e 145 MG Tadalafil Tadalafil No QD Tadalafil 10 MG 10 MG 10 MG Clopidogrel Clopidogrel No 1{table QD Clopidogre Bisulfate Bisulfate t} l 75 MG 75 MG Bisulfate 75 MG Aspirin 81 Aspirin 81 No 1{table QD Aspirin 81 81 MG 81 MG t} 81 MG metFORMIN metFORMIN No 1{table BID metFORMIN HCl 500 MG HCl 500 MG t_with_ HCl 500 MG a_meal} amLODIPine amLODIPine No 1{table QD amLODIPine Besylate 5 Besylate 5 t} Besylate 5 MG MG MG Pantoprazol Pantoprazol No 1{table QD Pantoprazo e Sodium 40 e Sodium 40 t} le Sodium MG MG 40 MG Losartan Losartan No Losartan Potassium-H Potassium-H Potassium- CTZ CTZ HCTZ 100-12.5 MG 100-12.5 MG 100-12.5 MG Atorvastati Atorvastati No 1{table QD Atorvastat n Calcium n Calcium t} in Calcium 40 MG 40 MG 40 MG Fenofibrate Fenofibrate No 1{table QD Fenofibrat 145 MG 145 MG t} e 145 MG Tadalafil Tadalafil No QD Tadalafil 10 MG 10 MG 10 MG Clopidogrel Clopidogrel No 1{table QD Clopidogre Bisulfate Bisulfate t} l 75 MG 75 MG Bisulfate 75 MG Aspirin 81 Aspirin 81 No 1{table QD Aspirin 81 81 MG 81 MG t} 81 MG metFORMIN metFORMIN No 1{table BID metFORMIN HCl 500 MG HCl 500 MG t_with_ HCl 500 MG a_meal} amLODIPine amLODIPine No 1{table QD amLODIPine Besylate 5 Besylate 5 t} Besylate 5 MG MG MG Pantoprazol Pantoprazol No 1{table QD Pantoprazo e Sodium 40 e Sodium 40 t} le Sodium MG MG 40 MG Losartan Losartan No Losartan Potassium-H Potassium-H Potassium- CTZ CTZ HCTZ 100-12.5 MG 100-12.5 MG 100-12.5 MG Atorvastati Atorvastati No 1{table QD Atorvastat n Calcium n Calcium t} in Calcium 40 MG 40 MG 40 MG Fenofibrate Fenofibrate No 1{table QD Fenofibrat 145 MG 145 MG t} e 145 MG Desmopressi Desmopressi Yes 1 TAKE 1 UT n Acetate n Acetate TABLET AT [facility] 0.2 MG Oral 0.2 MG Oral BEDTIME. ans Tablet Tablet Tadalafil Tadalafil No QD Tadalafil 10 MG 10 MG 10 MG Clopidogrel Clopidogrel No 1{table QD Clopidogre Bisulfate Bisulfate t} l 75 MG 75 MG Bisulfate 75 MG Aspirin 81 Aspirin 81 No 1{table QD Aspirin 81 81 MG 81 MG t} 81 MG metFORMIN metFORMIN No 1{table BID metFORMIN HCl 500 MG HCl 500 MG t_with_ HCl 500 MG a_meal} amLODIPine amLODIPine No 1{table QD amLODIPine Besylate 5 Besylate 5 t} Besylate 5 MG MG MG Pantoprazol Pantoprazol No 1{table QD Pantoprazo e Sodium 40 e Sodium 40 t} le Sodium MG MG 40 MG Tadalafil Tadalafil No QD Tadalafil 10 MG 10 MG 10 MG Atorvastati Atorvastati No 1{table QD Atorvastat n Calcium n Calcium t} in Calcium 40 MG 40 MG 40 MG Fenofibrate Fenofibrate No 1{table QD Fenofibrat 145 MG 145 MG t} e 145 MG amLODIPine amLODIPine No 1{table QD amLODIPine Besylate 5 Besylate 5 t} Besylate 5 MG MG MG Clopidogrel Clopidogrel Yes 1 QD TAKE 1 UT Bisulfate Bisulfate TABLET [facility] 75 MG Oral 75 MG Oral DAILY an s Tablet Tablet Clopidogrel Clopidogrel No 1{table QD Clopidogre Bisulfate Bisulfate t} l 75 MG 75 MG Bisulfate 75 MG Aspirin 81 Aspirin 81 No 1{table QD Aspirin 81 81 MG 81 MG t} 81 MG metFORMIN metFORMIN No 1{table BID metFORMIN HCl 500 MG HCl 500 MG t_with_ HCl 500 MG a_meal} Losartan Losartan No QD Losartan Potassium-H Potassium-H Potassium- CTZ CTZ HCTZ 100-12.5 MG 100-12.5 MG 100-12.5 MG Pantoprazol Pantoprazol No 1{table QD Pantoprazo e Sodium 40 e Sodium 40 t} le Sodium MG MG 40 MG Tadalafil Tadalafil No QD Tadalafil 10 MG 10 MG 10 MG Atorvastati Atorvastati No 1{table QD Atorvastat n Calcium n Calcium t} in Calcium 40 MG 40 MG 40 MG metFORMIN metFORMIN No 1{table BID metFORMIN HCl 500 MG HCl 500 MG t_with_ HCl 500 MG a_meal} amLODIPine amLODIPine No 1{table QD amLODIPine Besylate 5 Besylate 5 t} Besylate 5 MG MG MG Fenofibrate Fenofibrate No Fenofibrat 145 MG 145 MG e 145 MG diazePAM 5 diazePAM 5 Yes TAKE ONCE UT MG Oral MG Oral [facility] Tablet Tablet ans Aspirin 81 Aspirin 81 No 1{table QD Aspirin 81 81 MG 81 MG t} 81 MG Clopidogrel Clopidogrel No Clopidogre Bisulfate Bisulfate l 75 MG 75 MG Bisulfate 75 MG Losartan Losartan No QD Losartan Potassium-H Potassium-H Potassium- CTZ CTZ HCTZ 100-12.5 MG 100-12.5 MG 100-12.5 MG Aspirin 81 Aspirin 81 No 1{table QD Aspirin 81 81 MG 81 MG t} 81 MG Clopidogrel Clopidogrel No Clopidogre Bisulfate Bisulfate l 75 MG 75 MG Bisulfate 75 MG Losartan Losartan No QD Losartan Potassium-H Potassium-H Potassium- CTZ CTZ HCTZ 100-12.5 MG 100-12.5 MG 100-12.5 MG metFORMIN metFORMIN No 1{table BID metFORMIN HCl 500 MG HCl 500 MG t_with_ HCl 500 MG a_meal} Tadalafil Tadalafil No 1{table QD Tadalafil 10 MG 10 MG t} 10 MG amLODIPine amLODIPine Yes QD TAKE 1 U T Besylate 5 Besylate 5 TABLET P [facility] MG Oral MG Oral DAILY ans Tablet Tablet DIRECTED. Pantoprazol Pantoprazol No 1{table QD Pantoprazo e Sodium 40 e Sodium 40 t} le Sodium MG MG 40 MG Cephalexin Cephalexin No 1{capsu QID Cephalexin 500 MG 500 MG le} 500 MG Fenofibrate Fenofibrate No Fenofibrat 145 MG 145 MG e 145 MG Bactrim DS Bactrim DS No 1{table BID Bactrim DS 800-160 MG 800-160 MG t} 800-160 MG Atorvastati Atorvastati No 1{table QD Atorvastat n Calcium n Calcium t} in Calcium 40 MG 40 MG 40 MG amLODIPine amLODIPine No 1{table QD amLODIPine Besylate 10 Besylate 10 t} Besylate MG MG 10 MG Aspirin 81 Aspirin 81 No 1{table QD Aspirin 81 81 MG 81 MG t} 81 MG Clopidogrel Clopidogrel No Clopidogre Bisulfate Bisulfate l 75 MG 75 MG Bisulfate 75 MG Losartan Losartan No QD Losartan Potassium-H Potassium-H Potassium- CTZ CTZ HCTZ 100-12.5 MG 100-12.5 MG 100-12.5 MG metFORMIN metFORMIN Yes 1 Q0.5D TAKE 1 UT HCl - 500 HCl - 500 TABLET [facility] MG Oral MG Oral TWICE ans Tablet Tablet DAILY metFORMIN metFORMIN No 1{table BID metFORMIN HCl 500 MG HCl 500 MG t_with_ HCl 500 MG a_meal} Tadalafil Tadalafil No 1{table QD Tadalafil 10 MG 10 MG t} 10 MG Pantoprazol Pantoprazol No 1{table QD Pantoprazo e Sodium 40 e Sodium 40 t} le Sodium MG MG 40 MG Cephalexin Cephalexin No 1{capsu QID Cephalexin 500 MG 500 MG le} 500 MG Fenofibrate Fenofibrate No Fenofibrat 145 MG 145 MG e 145 MG Bactrim DS Bactrim DS No 1{table BID Bactrim DS 800-160 MG 800-160 MG t} 800-160 MG Atorvastati Atorvastati No 1{table QD Atorvastat n Calcium n Calcium t} in Calcium 40 MG 40 MG 40 MG amLODIPine amLODIPine No 1{table QD amLODIPine Besylate 10 Besylate 10 t} Besylate MG MG 10 MG Aspirin 81 Aspirin 81 No 1{table QD Aspirin 81 81 MG 81 MG t} 81 MG Clopidogrel Clopidogrel No Clopidogre Bisulfate Bisulfate l 75 MG 75 MG Bisulfate 75 MG Losartan Losartan Yes 1 QD TAKE 1 UT Potassium-H Potassium-H TABLET [facility] CTZ 50-12.5 CTZ 50-12.5 DAILY. ans MG Oral MG Oral Tablet Tablet Losartan Losartan No QD Losartan Potassium-H Potassium-H Potassium- CTZ CTZ HCTZ 100-12.5 MG 100-12.5 MG 100-12.5 MG metFORMIN metFORMIN No 1{table BID metFORMIN HCl 500 MG HCl 500 MG t_with_ HCl 500 MG a_meal} Tadalafil Tadalafil No 1{table QD Tadalafil 10 MG 10 MG t} 10 MG Pantoprazol Pantoprazol No 1{table QD Pantoprazo e Sodium 40 e Sodium 40 t} le Sodium MG MG 40 MG Cephalexin Cephalexin No 1{capsu QID Cephalexin 500 MG 500 MG le} 500 MG Fenofibrate Fenofibrate No Fenofibrat 145 MG 145 MG e 145 MG Bactrim DS Bactrim DS No 1{table BID Bactrim DS 800-160 MG 800-160 MG t} 800-160 MG Atorvastati Atorvastati No 1{table QD Atorvastat n Calcium n Calcium t} in Calcium 40 MG 40 MG 40 MG amLODIPine amLODIPine No 1{table QD amLODIPine Besylate 10 Besylate 10 t} Besylate MG MG 10 MG metFORMIN metFORMIN No 1{table BID metFORMIN HCl 500 MG HCl 500 MG t_with_ HCl 500 MG a_meal} Bactrim DS Bactrim DS No 1{table BID Bactrim DS 800-160 MG 800-160 MG t} 800-160 MG Clopidogrel Clopidogrel No Clopidogre Bisulfate Bisulfate l 75 MG 75 MG Bisulfate 75 MG Benzonatate Benzonatate No 1{capsu TID Benzonatat 200 MG 200 MG le} e 200 MG Fenofibrate Fenofibrate No Fenofibrat 145 MG 145 MG e 145 MG Atorvastati Atorvastati No 1{table QD Atorvastat n Calcium n Calcium t} in Calcium 40 MG 40 MG 40 MG amLODIPine amLODIPine No 1{table QD amLODIPine Besylate 10 Besylate 10 t} Besylate MG MG 10 MG Finasteride Finasteride Yes 1 tablet UT 5 MG Oral 5 MG Oral 3x a week [facility] Tablet Tablet ans Naproxen Naproxen No BID Naproxen 500 MG 500 MG 500 MG Aspirin 81 Aspirin 81 No 1{table QD Aspirin 81 81 MG 81 MG t} 81 MG Pantoprazol Pantoprazol No 1{table QD Pantoprazo e Sodium 40 e Sodium 40 t} le Sodium MG MG 40 MG Tadalafil Tadalafil No 1{table QD Tadalafil 10 MG 10 MG t} 10 MG Losartan Losartan No QD Losartan Potassium-H Potassium-H Potassium- CTZ CTZ HCTZ 100-12.5 MG 100-12.5 MG 100-12.5 MG Cephalexin Cephalexin No 1{capsu QID Cephalexin 500 MG 500 MG le} 500 MG Clopidogrel Clopidogrel No Clopidogre Bisulfate Bisulfate l 75 MG 75 MG Bisulfate 75 MG Losartan Losartan No QD Losartan Potassium-H Potassium-H Potassium- CTZ CTZ HCTZ 100-12.5 MG 100-12.5 MG 100-12.5 MG Tadalafil Tadalafil No 1{table QD Tadalafil 10 MG 10 MG t} 10 MG Fenofibrate Fenofibrate No Fenofibrat 145 MG 145 MG e 145 MG Aspirin 81 Aspirin 81 No 1{table QD Aspirin 81 81 MG 81 MG t} 81 MG Naproxen Naproxen No BID Naproxen 500 MG 500 MG 500 MG Pantoprazol Pantoprazol No 1{table QD Pantoprazo e Sodium 40 e Sodium 40 t} le Sodium MG MG 40 MG Benzonatate Benzonatate No 1{capsu TID Benzonatat 200 MG 200 MG le} e 200 MG amLODIPine amLODIPine No 1{table QD amLODIPine Besylate 10 Besylate 10 t} Besylate MG MG 10 MG Sulfamethox Sulfamethox No 1{table BID Sulfametho azole-Trime azole-Trime t} xazole-Tri thoprim thoprim methoprim 800-160 MG 800-160 MG 800-160 MG Cephalexin Cephalexin No 1{capsu QID Cephalexin 500 MG 500 MG le} 500 MG Atorvastati Atorvastati No 1{table QD Atorvastat n Calcium n Calcium t} in Calcium 40 MG 40 MG 40 MG Atorvastati Atorvastati Yes 1 QD TAKE 1 UT n Calcium n Calcium TABLET Ph[facility] 40 MG Oral 40 MG Oral DAILY an s Tablet Tablet Bactrim DS Bactrim DS No 1{table BID Bactrim DS 800-160 MG 800-160 MG t} 800-160 MG metFORMIN metFORMIN No 1{table BID metFORMIN HCl 500 MG HCl 500 MG t_with_ HCl 500 MG a_meal} Clopidogrel Clopidogrel No Clopidogre Bisulfate Bisulfate l 75 MG 75 MG Bisulfate 75 MG Losartan Losartan No QD Losartan Potassium-H Potassium-H Potassium- CTZ CTZ HCTZ 100-12.5 MG 100-12.5 MG 100-12.5 MG Tadalafil Tadalafil No 1{table QD Tadalafil 10 MG 10 MG t} 10 MG Fenofibrate Fenofibrate No Fenofibrat 145 MG 145 MG e 145 MG Aspirin 81 Aspirin 81 No 1{table QD Aspirin 81 81 MG 81 MG t} 81 MG Naproxen Naproxen No BID Naproxen 500 MG 500 MG 500 MG Pantoprazol Pantoprazol No 1{table QD Pantoprazo e Sodium 40 e Sodium 40 t} le Sodium MG MG 40 MG Benzonatate Benzonatate No 1{capsu TID Benzonatat 200 MG 200 MG le} e 200 MG amLODIPine amLODIPine No 1{table QD amLODIPine Besylate 10 Besylate 10 t} Besylate MG MG 10 MG Sulfamethox Sulfamethox No 1{table BID Sulfametho azole-Trime azole-Trime t} xazole-Tri thoprim thoprim methoprim 800-160 MG 800-160 MG 800-160 MG Cephalexin Cephalexin No 1{capsu QID Cephalexin 500 MG 500 MG le} 500 MG Atorvastati Atorvastati No Atorvastat n Calcium n Calcium in Calcium 40 MG 40 MG 40 MG Bactrim DS Bactrim DS No 1{table BID Bactrim DS 800-160 MG 800-160 MG t} 800-160 MG metFORMIN metFORMIN No 1{table BID metFORMIN HCl 500 MG HCl 500 MG t_with_ HCl 500 MG a_meal} Aspirin 81 Aspirin 81 No 1{table QD Aspirin 81 81 MG 81 MG t} 81 MG Clopidogrel Clopidogrel No Clopidogre Bisulfate Bisulfate l 75 MG 75 MG Bisulfate 75 MG Aspirin 81 Aspirin 81 No 1{table QD Aspirin 81 81 MG 81 MG t} 81 MG Losartan Losartan No Losartan Potassium-H Potassium-H Potassium- CTZ CTZ HCTZ 100-12.5 MG 100-12.5 MG 100-12.5 MG metFORMIN metFORMIN No 1{table BID metFORMIN HCl 500 MG HCl 500 MG t_with_ HCl 500 MG a_meal} Pantoprazol Pantoprazol No 1{table QD Pantoprazo e Sodium 40 e Sodium 40 t} le Sodium MG MG 40 MG Cephalexin Cephalexin No 1{capsu QID Cephalexin 500 MG 500 MG le} 500 MG Losartan Losartan No QD Losartan Potassium-H Potassium-H Potassium- CTZ CTZ HCTZ 100-12.5 MG 100-12.5 MG 100-12.5 MG Atorvastati Atorvastati No Atorvastat n Calcium n Calcium in Calcium 40 MG 40 MG 40 MG Benzonatate Benzonatate No 1{capsu TID Benzonatat 200 MG 200 MG le} e 200 MG Fenofibrate Fenofibrate Yes 1 QD TAKE 1 UT 145 MG Oral 145 MG Oral TABLET [facility] Tablet Tablet DAILY. ans Naproxen Naproxen No BID Naproxen 500 MG 500 MG 500 MG Clopidogrel Clopidogrel No 1{table QD Clopidogre Bisulfate Bisulfate t} l 75 MG 75 MG Bisulfate 75 MG Fenofibrate Fenofibrate No 1{table QD Fenofibrat 145 MG 145 MG t} e 145 MG Sulfamethox Sulfamethox No 1{table BID Sulfametho azole-Trime azole-Trime t} xazole-Tri thoprim thoprim methoprim 800-160 MG 800-160 MG 800-160 MG amLODIPine amLODIPine No 1{table QD amLODIPine Besylate 10 Besylate 10 t} Besylate MG MG 10 MG Clopidogrel Clopidogrel No Clopidogre Bisulfate Bisulfate l 75 MG 75 MG Bisulfate 75 MG Atorvastati Atorvastati No 1{table QD Atorvastat n Calcium n Calcium t} in Calcium 40 MG 40 MG 40 MG Fenofibrate Fenofibrate No Fenofibrat 145 MG 145 MG e 145 MG Bactrim DS Bactrim DS No 1{table BID Bactrim DS 800-160 MG 800-160 MG t} 800-160 MG Tadalafil 5 Tadalafil 5 No 1{table QD Tadalafil MG MG t} 5 MG metFORMIN metFORMIN No 1{table BID metFORMIN HCl 500 MG HCl 500 MG t_with_ HCl 500 MG a_meal} Aspirin 81 Aspirin 81 No 1{table QD Aspirin 81 81 MG 81 MG t} 81 MG Tadalafil 5 Tadalafil 5 No 1{table QD Tadalafil MG MG t} 5 MG metFORMIN metFORMIN No 1{table BID metFORMIN HCl 500 MG HCl 500 MG t_with_ HCl 500 MG a_meal} Pantoprazol Pantoprazol No 1{table QD Pantoprazo e Sodium 40 e Sodium 40 t} le Sodium MG MG 40 MG Cephalexin Cephalexin No 1{capsu QID Cephalexin 500 MG 500 MG le} 500 MG Atorvastati Atorvastati No Atorvastat n Calcium n Calcium in Calcium 40 MG 40 MG 40 MG Tadalafil Tadalafil No 1{table QD Tadalafil 10 MG 10 MG t} 10 MG Aspirin 81 Aspirin 81 Yes 1 QD TAKE 1 U T MG TABS MG TABS TABLET [facility] DAILY. ans Benzonatate Benzonatate No 1{capsu TID Benzonatat 200 MG 200 MG le} e 200 MG Naproxen Naproxen No BID Naproxen 500 MG 500 MG 500 MG Fenofibrate Fenofibrate No 1{table QD Fenofibrat 145 MG 145 MG t} e 145 MG Losartan Losartan No Losartan Potassium-H Potassium-H Potassium- CTZ CTZ HCTZ 100-12.5 MG 100-12.5 MG 100-12.5 MG Sulfamethox Sulfamethox No 1{table BID Sulfametho azole-Trime azole-Trime t} xazole-Tri thoprim thoprim methoprim 800-160 MG 800-160 MG 800-160 MG Atorvastati Atorvastati No 1{table QD Atorvastat n Calcium n Calcium t} in Calcium 40 MG 40 MG 40 MG Clopidogrel Clopidogrel No Clopidogre Bisulfate Bisulfate l 75 MG 75 MG Bisulfate 75 MG Clopidogrel Clopidogrel No 1{table QD Clopidogre Bisulfate Bisulfate t} l 75 MG 75 MG Bisulfate 75 MG Fenofibrate Fenofibrate No Fenofibrat 145 MG 145 MG e 145 MG Bactrim DS Bactrim DS No 1{table BID Bactrim DS 800-160 MG 800-160 MG t} 800-160 MG Pantoprazol Pantoprazol No 1{table QD Pantoprazo e Sodium 40 e Sodium 40 t} le Sodium MG MG 40 MG amLODIPine amLODIPine No 1{table QD amLODIPine Besylate 10 Besylate 10 t} Besylate MG MG 10 MG Pantoprazol Pantoprazol No 1{table QD Pantoprazo e Sodium 40 e Sodium 40 t} le Sodium MG MG 40 MG Aspirin 81 Aspirin 81 No 1{table QD Aspirin 81 81 MG 81 MG t} 81 MG Losartan Losartan No Losartan Potassium-H Potassium-H Potassium- CTZ CTZ HCTZ 100-12.5 MG 100-12.5 MG 100-12.5 MG Sulfamethox Sulfamethox No 1{table BID Sulfametho azole-Trime azole-Trime t} xazole-Tri thoprim thoprim methoprim 800-160 MG 800-160 MG 800-160 MG Vitamin C Vitamin C Yes QD CHEW AND U T 1000 MG 1000 MG SWALLOW 1 Phys [facility] CHEW CHEW TABLET ans DAILY. Benzonatate Benzonatate No 1{capsu TID Benzonatat 200 MG 200 MG le} e 200 MG Cephalexin Cephalexin No 1{capsu QID Cephalexin 500 MG 500 MG le} 500 MG Cephalexin Cephalexin No 1{capsu QID Cephalexin 500 MG 500 MG le} 500 MG Atorvastati Atorvastati No Atorvastat n Calcium n Calcium in Calcium 40 MG 40 MG 40 MG Atorvastati Atorvastati No 1{table QD Atorvastat n Calcium n Calcium t} in Calcium 40 MG 40 MG 40 MG Vitamin D3 Vitamin D3 Yes 1 QD TAKE 1 U T 50 MCG 50 MCG CAPSULE [facility] (1999 UT) (1999) DAILY ans Oral Oral Capsule Capsule Clopidogrel Clopidogrel No 1{table QD Clopidogre Bisulfate Bisulfate t} l 75 MG 75 MG Bisulfate 75 MG Bactrim DS Bactrim DS No 1{table BID Bactrim DS 800-160 MG 800-160 MG t} 800-160 MG Fenofibrate Fenofibrate No Fenofibrat 145 MG 145 MG e 145 MG metFORMIN metFORMIN No 1{table BID metFORMIN HCl 500 MG HCl 500 MG t_with_ HCl 500 MG a_meal} amLODIPine amLODIPine No 1{table QD amLODIPine Besylate 10 Besylate 10 t} Besylate MG MG 10 MG Vitamin E Vitamin E Yes 180 mg UT 400 UNIT 400 UNIT daily [facility] i Oral Oral ans Capsule Capsule Naproxen Naproxen No BID Naproxen 500 MG 500 MG 500 MG Clopidogrel Clopidogrel No Clopidogre Bisulfate Bisulfate l 75 MG 75 MG Bisulfate 75 MG Mens 50+ Mens 50+ Yes 1 QD TAKE 1 UT Multi Multi TABLET [facility] Vitamin/Min Vitamin/Min DAILY. ans TABS TABS Fenofibrate Fenofibrate No Fenofibrat 145 MG 145 MG e 145 MG Zinc 50 MG Zinc 50 MG Yes 1 QD TAKE 1 U T Oral Tablet Oral Tablet TABLET [facility] DAILY. ans Tadalafil 5 Tadalafil 5 No 1{table QD Tadalafil MG MG t} 5 MG Bactrim DS Bactrim DS No 1{table BID Bactrim DS 800-160 MG 800-160 MG t} 800-160 MG Atorvastati Atorvastati No 1{table QD Atorvastat n Calcium n Calcium t} in Calcium 40 MG 40 MG 40 MG amLODIPine amLODIPine No 1{table QD amLODIPine Besylate 10 Besylate 10 t} Besylate MG MG 10 MG Aspirin 81 Aspirin 81 No 1{table QD Aspirin 81 81 MG 81 MG t} 81 MG Clopidogrel Clopidogrel No Clopidogre Bisulfate Bisulfate l 75 MG 75 MG Bisulfate 75 MG Adult Adult No 1 Q1D Adult [place] Aspirin Aspirin Aspirin Family Regimen 81 Regimen 81 Regimen 81 Practic mg mg mg e tablet,jens tablet,jens tablet,del yed release yed release ayed Take 1 Take 1 release tablet tablet Take 1 every day every day tablet by oral by oral every day route. route. by oral route. Losartan Losartan No QD Losartan Potassium-H Potassium-H Potassium- CTZ CTZ HCTZ 100-12.5 MG 100-12.5 MG 100-12.5 MG amlodipine amlodipine No amlodipine [place] 5 mg tablet 5 mg tablet 5 mg F amily TAKE 1 TAKE 1 tablet Practic TABLET BY TABLET BY TAKE 1 e MOUTH EVERY MOUTH EVERY TABLET BY DAY DAY MOUTH EVERY DAY metFORMIN metFORMIN No 1{table BID metFORMIN HCl 500 MG HCl 500 MG t_with_ HCl 500 MG a_meal} Tadalafil Tadalafil No 1{table QD Tadalafil 10 MG 10 MG t} 10 MG Pantoprazol Pantoprazol No 1{table QD Pantoprazo e Sodium 40 e Sodium 40 t} le Sodium MG MG 40 MG Cephalexin Cephalexin No 1{capsu QID Cephalexin 500 MG 500 MG le} 500 MG Fenofibrate Fenofibrate No Fenofibrat 145 MG 145 MG e 145 MG Bactrim DS Bactrim DS No 1{table BID Bactrim DS 800-160 MG 800-160 MG t} 800-160 MG Atorvastati Atorvastati No 1{table QD Atorvastat n Calcium n Calcium t} in Calcium 40 MG 40 MG 40 MG amLODIPine amLODIPine No 1{table QD amLODIPine Besylate 10 Besylate 10 t} Besylate MG MG 10 MG atorvastati atorvastati No atorvastat [place] n 40 mg n 40 mg in 40 mg Famil y tablet TAKE tablet TAKE tablet Practic 1 TABLET BY 1 TABLET BY TAKE 1 e MOUTH AT MOUTH AT TABLET BY BEDTIME BEDTIME MOUTH AT BEDTIME clopidogrel clopidogrel No clopidogre [facility] 75 mg 75 mg l 75 mg Family tablet TAKE tablet TAKE tablet Practic 1 TABLET BY 1 TABLET BY TAKE 1 e MOUTH EVERY MOUTH EVERY TABLET BY DAY DAY MOUTH EVERY DAY desmopressi desmopressi No desmopress [facility] n 0.2 mg n 0.2 mg in 0.2 mg Fa marianne tablet tablet tablet Practic e Ditropan XL Ditropan XL No 1 Q1D Ditropan [facility] 5 mg 5 mg XL 5 mg Family tablet,exte tablet,exte tablet,ext Practic nded nded ended e release release release Take 1 Take 1 Take 1 tablet tablet tablet every day every day every day by oral by oral by oral route. route. route. fenofibrate fenofibrate No fenofibrat [facility] nanocrystal nanocrystal e F amily lized 145 lized 145 nanocrysta Practic mg tablet mg tablet llized 145 e TAKE 1 TAKE 1 mg tablet TABLET BY TABLET BY TAKE 1 MOUTH EVERY MOUTH EVERY TABLET BY DAY WITH DAY WITH MOUTH FOOD FOOD EVERY DAY WITH FOOD finasteride finasteride No finasterid [facility] 5 mg tablet 5 mg tablet e 5 mg Family Take 1 Take 1 tablet Practic tablet tablet Take 1 e every day every day tablet by oral by oral every day route. route. by oral route. FreeStyle FreeStyle No 1strip( Q1D FreeStyle [facility] Lite Strips Lite Strips s) Lite F amily Take 1 Take 1 Strips Practic strip every strip every Take 1 e day by day by strip miscell. miscell. every day route for route for by 90 days. 90 days. miscell. route for 90 days. losartan losartan No losartan Todd helen 100 100 100 Family mg-hydrochl mg-hydrochl mg-hydroch Practic orothiazide orothiazide lorothiazi e 12.5 mg 12.5 mg de 12.5 mg tablet TAKE tablet TAKE tablet 1 TABLET BY 1 TABLET BY TAKE 1 MOUTH EVERY MOUTH EVERY TABLET BY DAY DAY MOUTH EVERY DAY metformin metformin No 1 BID metformin [facility] ER 500 mg ER 500 mg [...] 90 days. 90 days. for 90 days. multivitami multivitami No multivitam [facility] n 1x a day n 1x a day in 1x a Family day Practic e pantoprazol pantoprazol No pantoprazo [facility] e 40 mg e 40 mg le 40 mg Famil y tablet,jens tablet,jens tablet,del Practic yed release yed release ayed e TAKE 1 TAKE 1 release TABLET BY TABLET BY TAKE 1 MOUTH DAILY MOUTH DAILY TABLET BY MOUTH DAILY sildenafil sildenafil No sildenafil [facility] 100 mg 100 mg 100 mg Family tablet TAKE tablet TAKE tablet Practic ONE (1) ONE (1) TAKE ONE e TABLET(S) TABLET(S) (1) BY MOUTH BY MOUTH TABLET(S) NEEDED ONCE NEEDED ONCE BY MOUTH A DAY. A DAY. NEEDED ONCE A DAY. simvastatin simvastatin No 1 Q1D simvastati [facility] 20 mg 20 mg n 20 [...] ONCE A DAY. tamsulosin tamsulosin No tamsulosin [facility] 0.4 mg 0.4 mg 0.4 mg Family capsule capsule capsule Practi c e Vitamin C Vitamin C No Vitamin C [facility] Family Practic e Immunizations Ordered Immunization Filled Immunization Date Status Commen ts Source Name Name FluAD FluAD 2020-12-06 [facility]pleted [facility] FluAD FluAD 2020-12-06 Completed [facility] 14:17[facility]00 [facility] FluAD FluAD 2020-12-06 Completed [facility] 14:17:00 [facility] FluAD FluAD 2020-12-06 Completed [facility] 14:17:00 [facility] FluAD FluAD 2020-12-06 Completed [facility] 14:17:00 [facility] FluAD FluAD 2020-12-06 Completed [facility] 14:17:00 [facility] FluAD FluAD 2020-12-06 Completed [facility] 14:17:00 [facility] FluAD FluAD 2020-12-06 Completed [facility] 14:17:00 [facility] FluAD FluAD 2020-12-06 Completed [facility] 14:17:00 [facility] FluAD FluAD 2020-12-06 Completed [facility] 14:17:00 [facility] FluAD FluAD 2020-12-06 Completed [facility] 14:17:00 [facility] FluAD FluAD 2020-12-06 Completed [facility] 14:17:00 [facility] FluAD FluAD 2020-12-06 Completed [facility] 14:17:00 [facility] FluAD FluAD 2020-12-06 Completed [facility] 14:17:00 [facility] FluAD FluAD 2020-12-06 Completed [facility] 14:17:00 [facility] FluAD FluAD 2020-12-06 Completed [facility] 14:17:00 [facility] FluAD FluAD 2020-12-06 Completed [facility] 14:17:00 [facility] FluAD FluAD 2020-12-06 Completed [facility] 14:17:00 [facility] FluAD FluAD 2020-12-06 Completed [facility] 14:17:00 [facility] FluAD FluAD 2020-12-06 Completed [facility] - 14:17:00 [facility] FluAD FluAD 2020-12-06 Completed [facility] - 14:17:00 [facility] FluAD FluAD 2020-12-06 Completed [facility] 14:17:00 [facility] FluAD FluAD 2020-12-06 Completed [facility] 14:17:00 [facility] FluAD FluAD 2020-12-06 Completed [facility] - 14:17:00 [facility] COVID-19, mRNA, COVID-19, mRNA, 2020-04-17 Completed [facility] LNP-S, PF, 100 LNP-S, PF, 100 00:00:00 Practi ce mcg/0.5 mL dose mcg/0.5 mL dose Vital Signs Vital Name Observation Time Observation Value Comments Source height 2021-12-20 64 [in_i] [facility] 13:20:00 [facility] weight 2021-12-20 160.7 [lb_av] [facility] - 13:20:00 [facility] temperature 2021-12-20 97.6 [degF] [facility] - 13:20:00 [facility] bmi 2021-12-20 27.58 kg/m2 [facility] - 13:20:00 [facility] oximetry 2021-12-20 97 % [facility] - 13:20:00 [facility] respiratory rate 2021-12-20 17 /min [facility] - 13:20[facility]00 [facility] blood pressure 2021-12-20 129 mm[Hg] [facility] - systolic 13:20:00 [facility] blood pressure 2021-12-20 63 mm[Hg] [facility] - diastolic 13:20:00 [facility] height 2021-11-23 64 [in_i] [facility] - 10:20:00 [facility] weight 2021-11-23 160.2 [lb_av] [facility] - 10:20:00 [facility] temperature 2021-11-23 97.5 [degF] [facility] - 10:20:00 [facility] bmi 2021-11-23 27.5 kg/m2 [facility] - 10:20:00 [facility] oximetry 2021-11-23 98 % [facility] - 10:20:00 [facility] respiratory rate 2021-11-23 18 /min [facility] - 10:20:00 [facility] blood pressure 2021-11-23 135 mm[Hg] [facility] - systolic 10:20:00 [facility] blood pressure 2021-11-23 65 mm[Hg] [facility] - diastolic 10:20:00 [facility] height 2021-11-14 64 [in_i] [facility] - 14:00:00 [facility] weight 2021-11-14 160 [lb_av] [facility] - 14:00:00 [facility] temperature 2021-11-14 98.1 [degF] [facility] - 14:00:00 [facility] bmi 2021-11-14 27.46 kg/m2 [facility] - 14:00:00 [facility] oximetry 2021-11-14 98 % [facility] - 14:00:00 [facility] respiratory rate 2021-11-14 17 /min [facility] - 14:00:00 [facility] blood pressure 2021-11-14 139 mm[Hg] [facility] - systolic 14:00:00 [facility] blood pressure 2021-11-14 66 mm[Hg] [facility] - diastolic 14:00:00 [facility] height 2021-11-08 64 [in_i] [facility] - 09:00:00 [facility] weight 2021-11-08 157 [lb_av] [facility] - 09:00:00 [facility] temperature 2021-11-08 98.1 [degF] [facility] - 09:00:00 [facility] bmi 2021-11-08 26.95 kg/m2 [facility] - 09:00:00 [facility] oximetry 2021-11-08 100 % [facility] - 09:00:00 [facility] respiratory rate 2021-11-08 17 /min [facility] - 09:00:00 [facility] blood pressure 2021-11-08 117 mm[Hg] [facility] - systolic 09:00:00 [facility] blood pressure 2021-11-08 56 mm[Hg] [facility] - diastolic 09:00:00 [facility] height 2021-11-02 64 [in_i] [facility] - 10:40:00 [facility] weight 2021-11-02 169 [lb_av] [facility] - 10:40:00 [facility] temperature 2021-11-02 97.7 [degF] [facility] - 10:40:00 [facility] bmi 2021-11-02 29.01 kg/m2 [facility] - 10:40:00 [facility] oximetry 2021-11-02 98 % [facility] - 10:40:00 [facility] respiratory rate 2021-11-02 16 /min [facility] - 10:40:00 [facility] blood pressure 2021-11-02 129 mm[Hg] [facility] - systolic 10:40:00 [facility] blood pressure 2021-11-02 60 mm[Hg] [facility] - diastolic 10:40:00 [facility] height 2021-09-19 64 [in_i] [facility] - 13:10:00 [facility] weight 2021-09-19 162 [lb_av] [facility] - 13:10:00 [facility] temperature 2021-09-19 97.9 [degF] [facility] - 13:10:00 [facility] bmi 2021-09-19 27.8 kg/m2 [facility] - 13:10:00 [facility] oximetry 2021-09-19 97 % [facility] - 13:10:00 [facility] respiratory rate 2021-09-19 16 /min [facility] - 13:10:00 [facility] blood pressure 2021-09-19 130 mm[Hg] [facility] - systolic 13:10:00 [facility] blood pressure 2021-09-19 71 mm[Hg] [facility] - diastolic 13:10:00 [facility] height 2021-09-19 64 [in_i] [facility] - 13:40:00 [facility] weight 2021-09-19 162 [lb_av] [facility] - 13:40:00 [facility] temperature 2021-09-19 97.9 [degF] [facility] - 13:40:00 [facility] bmi 2021-09-19 27.8 kg/m2 [facility] - 13:40:00 [facility] oximetry 2021-09-19 97 % [facility] - 13:40:00 [facility] respiratory rate 2021-09-19 16 /min [facility] - 13:40:00 [facility] blood pressure 2021-09-19 130 mm[Hg] [facility] - systolic 13:40:00 [facility] blood pressure 2021-09-19 71 mm[Hg] [facility] - diastolic 13:40:00 [facility] height 2021-06-20 66 [in_i] [facility] - 10:20:00 [facility] weight 2021-06-20 159.8 [lb_av] [facility] - 10:20:00 [facility] temperature 2021-06-20 97.9 [degF] [facility] - 10:20:00 [facility] bmi 2021-06-20 25.79 kg/m2 [facility] - 10:20:00 [facility] oximetry 2021-06-20 98 % [facility] - 10:20:00 [facility] respiratory rate 2021-06-20 18 /min [facility] - 10:20:00 [facility] blood pressure 2021-06-20 134 mm[Hg] [facility] - systolic 10:20:00 [facility] blood pressure 2021-06-20 69 mm[Hg] [facility] - diastolic 10:20:00 [facility] BP Diastolic 2020-07-10 84 mm[Hg] [facility] 00:00:00 Practice Height 2020-07-10 66 [in_i] [facility] 00:00:00 Practice BMI (Body Mass 2020-07-10 25.7 kg/m2 [facility] Famil y Index) 00:00:00 Practice BP Systolic 2020-07-10 155 mm[Hg] [facility] 00:00:00 Practice Body Weight 2020-07-10 159 [lb_av] [facility] 00:00:00 Practice BP Diastolic 2020-04-12 79 mm[Hg] [facility] 00:00:00 Practice Height 2020-04-12 66 [in_i] [facility] 00:00:00 Practice BMI (Body Mass 2020-04-12 25.7 kg/m2 [facility] Famil y Index) 00:00:00 Practice BP Systolic 2020-04-12 153 mm[Hg] [facility] 00:00:00 Practice Body Weight 2020-04-12 159 [lb_av] [facility] 00:00:00 Practice BP Diastolic 2019-12-02 84 mm[Hg] [facility] 00:00:00 Practice Height 2019-12-02 66 [in_i] [facility] 00:00:00 Practice BMI (Body Mass 2019-12-02 25.5 kg/m2 [facility] Famil y Index) 00:00:00 Practice BP Systolic 2019-12-02 130 mm[Hg] [facility] 00:00:00 Practice Body Weight 2019-12-02 158 [lb_av] [facility] 00:00:00 Practice Systolic blood 2019-12-17 163 mm[Hg] [facility] pressure 13:09:00 Position: Sitting Diastolic blood 2019-12-17 73 mm[Hg] [facility] 13:09:00 Position: Sitting Body height 2019-12-17 66 [in_us] [facility] 13:09:00 Weight 2019-12-17 161 [lb_av] [facility] 13:09:00 Body mass index 2019-12-17 25.99 kg/m2 [facility] (BMI) [Ratio] 13:09:00 Body temperature 2019-12-17 97.2 [degF] Method: [facility] 13:09:00 Temporal Heart Rate 2019-12-17 69 /min [facility] 13:09:00 O2 SAT 2019-12-17 98 % Source: RA [facility] 13:09:00 Procedures Procedure Date / Time Performing Clinician Source Performed MRI Brain wo contrast 2019-12-17 00:00:00 [facility] [id number] Colonoscopy 2017-01-17 00:00:00 [facility] Practice Splenectomy 1987-02-17 00:00:00 [facility] Splenectomy [facility] cervical vertebral fusion Plan of Care Planned Activity Planned Date Details Comments Source Future Scheduled 2021-12-24 HEPATITIS B VACCINES [facility] Test 02:43:59 (1 of 3 - 3-dose series) [code = HEPATITIS B VACCINES (1 of 3 - 3-dose series)] Future Scheduled 2021-12-24 COVID-19 VACCINE (#1) [facility] Test 02:43:59 [code = COVID-19 VACCINE (#1)] Future Scheduled 2021-12-24 Hepatitis C screening [facility] Test 02:43:59 (procedure) [code = 389961150] Future Scheduled 2021-12-24 COLONOSCOPY SCREENING [facility] Test 02:43:59 [code = COLONOSCOPY SCREENING] Future Scheduled 2021-12-24 SHINGLES VACCINES (1 [facility] Test 02:43:59 of 2) [code = SHINGLES VACCINES (1 of 2)] Future Scheduled 2021-12-24 65+ PNEUMOCOCCAL Method[facility] Test 02:43:59 VACCINE (1 - PCV) [code = 65+ PNEUMOCOCCAL VACCINE (1 - PCV)] Future Scheduled 2021-12-24 INFLUENZA [facility]ACCINE [facility] 02:43:59 [code = INFLUENZA VACCINE] Diagnostic Test 2020-07-10 glucose, fingerstick, Todd cervantes Family Pending 00:00:00 blood [code = Practice glucose, fingerstick, blood] Diagnostic Test 2020-07-10 hemoglobin A1C, Med serrano Pending 00:00:00 fingerstick [code = Practice hemoglobin A1C, fingerstick] Diagnostic Test 2019-12-17 MRI Brain wo contrast [facility] Pending 00:00:00 14994 [code = 57783] Encounters Start End Encounter Admission Attending Care Care Encounter Source Date/Time Date/Time Type Type Clinicians Facility Department ID 2021-12-18 Out[facility] [id number] [facility] 13:52:02 Luis Felipe [facility] 2021-11-16 Out[facility] P[facility], [facility] [id number] Common 08:36:02 Luis Felipe [facility] 2021-11-01 Outpatient Pry[facility], [facility] [id number] Common 14:08:01 Luis Felipe [facility] 2021-06-20 Outpatient Pryor, [facility] [id number] Common 10:07:01 Luis Felipe [facility] 2021-06-18 Outpatient Pryor, [facility] [id number] Common 16:16:00 Luis Felipe [facility] 2021-03-14 Outpatient Pryor, [facility] [id number] Common 14:38:20 Luis Felipe [facility] 2021-03-14 Outpatient Pryor, [facility] [id number] Common 14:33:06 Luis Felipe [facility] 2021-03-14 Outpatient Pryor, [facility] [id number] Common 13:06:03 Luis Felipe [facility] 2021-03-14 Outpatient Feaver, [facility] [id number] Common 12:54:08 Brown 03[address] [facility] 2020-11-25 Inpatient [facility] [id number] 11:23:51 [facility] 2020-05-21 Inpatient GLORIA [facility]L [facility] [id number] [facility] 23:50:00 Nioti [address] [facility] 2021-12-31 2021-12-31 (TEL) STLMLC STLMLC [id number] Co mmon 00:00:00 00:00:00 [facility] 2021-12-26 2021-12-26 (TEL) STLMLC STLMLC [id number] Co mmon 00:00:00 00:00:00 [facility] 2021-12-20 2021-12-20 OFFICE STLMLC STLMLC [id number] Co mmon 00:00:00 00:00:00 VISIT [facility] PT - [facility] LEVEL 4 [facility] 2021-11-23 2021-11-23 OFFICE STLMLC STLMLC [id number] Co mmon 00:00:00 00:00:00 VISIT EST Spir it PT LEVEL 3 [facility] 2021-11-15 2021-11-15 (TEL) STLMLC STLMLC [id number] Co mmon 00:00:00 00:00:00 [facility] 2021-11-14 2021-11-14 OFFICE STLMLC STLMLC [id number] Co mmon 00:00:00 00:00:00 VISIT EST Spir it PT LEVEL 3 [facility] 2021-11-14 2021-11-14 Catherine Crowder, 1.2.840.1 [id number] Methodi 00:00:00 00:00:00 Pepe R. 73044.1.1 836 s t 3.430.2.7 Hospit a .3.817773 l .8 2021-11-14 2021-11-14 Catherine Crowder, 1.2.840.1 [id number] [id number] Method[facility] 00:00:00 00:00:00 Pepe R. 61844.1.1 836 s t 3.430.2.7 Hospit a .3.181274 l .8 2021-11-09 2021-11-09 (TEL) STLMLC STLMLC [id number] Co mmon 00:00:00 00:00:00 [facility] 2021-11-08 2021-11-08 OFFICE STLMLC STLMLC [id number] Co mmon 00:00:00 00:00:00 VISIT [facility] PT LEVEL 3 - [facility] 2021-11-02 2021-11-02 OFFICE STLMLC STLMLC [id number] Co mmon 00:00:00 00:00:00 VISIT [facility] PT LEVEL 3 - [facility] 2021-11-01 2021-11-01 (TEL) STLMLC STLMLC [id number] Co mmon 00:00:00 00:00:00 [facility] 2021-10-26 2021-10-26 Outpatient [facility] [id number] [facility] 00:00:00 00:00:00 0[facility] 2021-09-24 2021-09-24 (TEL) STLMLC STLMLC [id number] Co mmon 00:00:00 00:00:00 [facility] 2021-09-19 2021-09-19 OFFICE STLMLC STLMLC [id number] Co mmon 00:00:00 00:00:00 VISIT [facility] PT - CHI LEVEL 4 [facility] 2021-09-19 2021-09-19 (TEL) STLMLC STLMLC [id number] Co mmon 00:00:00 00:00:00 [facility] 2021-09-19 2021-09-19 (TEL) STLMLC STLMLC [id number] Co mmon 00:00:00 00:00:00 [facility] 2021-09-19 2021-09-19 SUB ANNUAL STLMLC STLMLC [id number] Common 00:00:00 00:00:00 MCR [facility] VISIT [facility] 2021-08-31 2021-08-31 Outpatient BWilliams [facility] [id number] [facility] 03:13:00 03:13:00 0715 [facility] 2021-08-23 2021-08-23 (TEL) STLMLC STLMLC [id number] Co mmon 00:00:00 00:00:00 [facility] - [facility] 2021-08-14 2021-08-14 (TEL) STLMLC STLMLC [id number] Co mmon 00:00:00 00:00:00 [facility] 2021-06-20 2021-06-20 OFFICE STLMLC STLMLC [id number] Co mmon 00:00:00 00:00:00 VISIT [facility] PT - [facility] LEVEL 4 [facility] 2021-06-04 2021-06-04 Outpatient Daniel_T VFP VFP [id number] 04-08 00:00:00 00:00:00 [id number] Family Practic e 2021-05-07 2021-05-07 CAV Oma 2.16.840. 2.16.840.1. CLAC [id number] [facility] 21:00:00 22:00:00 Rosa Das.[id number]. [id number]. 3Y9 [facility] [id number] 2021-03-23 2021-03-23 Outpatient BWilliams [facility] [id number] [facility] 03:01:00 03:01:00 0204 [facility] 2021-02-14 2021-02-14 [facility] [id number] [facility] 01:04:00 01:04:00 1229 [facility]ica l [facility] 2021-01-08 2021-01-08 Catherine Crowder, 1.2.840.1 [id number] 2099 [id number] [facility] 00:00:00 00:00:00 Pepe R. 57602.1.1 911 s t 3.430.2.7 Hospit a .3.300595 l .8 2021-01-08 2021-01-08 Catherine Crowder, 1.2.840.1 [id number] 2099 [id number] [facility] 00:00:00 00:00:00 Pepe R. 40298.1.1 911 s t 3.430.2.7 Hospit a .3.827151 l .8 2020-12-27 2020-12-27 Outpatient DMG DMG [id number] [facility] 11:01:00 11:01:00 1110 Medica l Group 2020-08-07 2020-08-07 Outpatient Daniel_T VFP VFP [id number] [address] [place] [address] 12:22:00 12:22:00 [id number] Family Practic e 2020-07-12 2020-07-12 Outpatient Daniel_T VFP VFP [id number] [address] [place] [address] 03:44:00 03:44:00 [id number] Family Practic e 2020-07-10 2020-07-10 Outpatient Daniel_T VFP VFP [id number] [address] [place] [address] 12:01:00 12:01:00 [id number] Family Practic e 2020-07-10 2020-07-10 Heri VFP [place] - [id number] V illage 00:00:00 00:00:00 [facility] Manas Petty MD: [id number] Marquis [address] [facility], [address], [place] [address] , Ph. 2020-05-30 2020-05-30 Outpatient Ming [facility] [id number] [facility] 10:00:00 10:00:00 [facility] 2020-05-09 2020-05-09 Outpatient Ming [facility] [id number] Univers 15:50:00 15:50:00 [facility] 2020-04-14 2020-04-14 Outpatient Daniel_T VFP VFP [id number] [address] [place] [address] 05:07:00 05:07:00 [id number] Family Practic e 2020-04-12 2020-04-12 Outpatient Daniel_T VFP VFP [id number] [address] [place] [address] 12:10:00 12:10:00 [id number] Family Practic e 2020-04-12 2020-04-12 Heri VFP [place] - [id number] V illage 00:00:00 00:00:00 [facility] Manas Petty MD: [id number] Marquis [address], [place] [address] , Ph. 2020-04-11 2020-04-11 Outpatient MEMO, [facility] [id number] [place] 00:00:00 00:00:00 [facility]PE [place] [facility] 2020-04-03 2020-04-03 Outpatient Daniel_T VFP VFP [id number] [facility] 05:33:00 05:33:00 [id number] Family Practic e 2020-03-01 2020-03-01 Outpatient Daniel_T VFP VFP [id number] [facility] 12:47:00 12:47:00 [id number] Family Practic e 2020-02-15 2020-02-15 Laboratory Lab, [facility] 1.2.840.114 [id number] 11:11:11 11:31:11 Only Fam Pob I Health [id number] [place] 4.2.7.2.686 Professio [phone] [place] [address] [address] 2020-02-15 2020-02-15 Laboratory Lab, [facility] Fam Pob I [facility] 1.2. 840.114 [id number] [facility] 11:11:11 11:31:11 Only [facility] [id number] ity [facility] 4.2.7.2.686 Carlos as Professio [phone] [place] dical [address] Office Building [facility] 2020-02-15 2020-02-15 Outpatient R FRANCIS [facility] [id number] [facility] 11:20:00 11:20:00 OMAYEMI ity of [facility] 2020-02-15 2020-02-15 Letter Doctor GLORIA 1.2.840.114 [id number] 00:00:00 00:00:00 (Out) Unassigned, KIMANI [id number] [place] [facility] 4.2.7.2.686 [id number] 2020-02-15 2020-02-15 Telephone Lab, [facility] 1.2.840.114 [id number] 00:00:00 00:00:00 Fam Pob I Health [id number] [place] 4.2.7.2.686 Professio [phone] nal 044 [address] One 2020-02-15 2020-02-15 Letter Doctor GLORIA 1.2.840.114 [id number] Univers 00:00:00 00:00:00 (Out) Unassigned, KIMANI [id number] ity of [place] [facility] 4.2.7.2.686 Carlos as [phone] [facility] 044 [place] 2020-02-15 2020-02-15 Telephone Lab, [facility] 1.2.840.114 [id number] [facility] 00:00:00 00:00:00 Fam Pob I Health [id number] ity of [place] 4.2.7.2.686 Carlos as Professio [phone] La dical [facility] [address] [place] Office Building One 2020-02-03 2020-02-03 Outpatient [facility] [id number] 233 [place] 00:00:00 00:00:[address] 2020-01-27 2020-01-27 AppointXIOMY [facility] - [id number] [place] 16:00:00 16:00:00 t; MADINA FARRELL [facility] KATHERINE, M.D. Medical ans Diana [place] 2020-01-26 2020-01-26 Outpatient Jovanny_T VFP VFP [id number] [address] 01:03:00 01:03:00 [id number] Family Practic e 2020-01-17 2020-01-17 [place]patient [place] [id number] [place] 00:00:00 00:00:00 PEPE [address] 2020-01-17 2020-01-17 Outpatient [place] [id number] [place] [address] 00:00:00 00:00:00 PE[address] 2019-12-17 2019-12-17 Appointmen XIOMY FARRELL Neurology - 700 [id number] [place] 13:00:00 13:00:00 t; MADINA FARRELL [facility] KATHERINE, M.D. Medical ans Diana [place] 2019-12-14 2019-12-14 Appointmen EEG, UTP UTP [id number] [place] 11:00:00 11:00:00 t; EEG, ADULTCLINIC Ph ysici ADULTCLINI ans C 2019-12-10 2019-12-10 Outpatient Daniel_T VFP VFP [id number] 220 [facility] 05:45:00 05:45:00 [id number] Family Practic e 2019-12-03 2019-12-03 Outpatient [facility] [id number] [address] [place] 00:00:00 00:00:00 PEPE [address] 2019-12-02 2019-12-02 Outpatient Daniel_T VFP VFP [id number] 220 [facility] 06:05:00 06:05:00 [id number] Family Practic e 2019-12-02 2019-12-02 Heri VFP [place] - [id number] [place] 00:00:00 00:00:00 [facility] Family JovannyManas - Pracduy vu MD: [id number] VM_HOU_Dani e [facility], [facility] [address] [address] , Ph. 2019-11-29 2019-11-29 Outpatient Daniel_T VFP VFP [id number] [address] [place] [address] 03:29:00 03:29:00 [id number] Family Practic e 2019-10-20 2019-10-20 Outpatient Daniel_T VFP VFP [id number] [address] [place] [address] 10:46:00 10:46:00 Family Practic e 2019-09-29 2019-09-29 [place]patient [place] [id number] [place] 00:00:00 00:00:00 PEPE [address] 2018-09-02 2018-09-02 XIOMY Martinez UTP [id number] [place] 10:15:00 10:15:00 t; Diana BRYANT ans MARK, M.D. 2018-03-17 2018-03-17 GLORIA Calvert UTP UTP [id number] [place] 10:30:00 10:30:00 t; Diana VILLA Physi Diana Henriquez 2017-12-16 2017-12-16 GLORIA Calvert UTP UTP [id number] [place] 10:30:00 10:30:00 t; Diana VILLA Physi Diana Henriquez Results Test Description Test Time Test Comments Results Result Comments Source GLUCOSE BEDSIDE TESTING 2020-05-23 11:16:00 Test Item Value Reference Range Interpretation Comme nts GLUCOSE BEDSIDE TESTING (test code = GLUBED) 168 MG/DL 60-99 H BASIC METABOLIC [id number] 08:34:00 Test Item Value Reference Range Interpretation Comments SODIUM (test code = 137 MMOL/L 137-145 N NA) POTASSIUM (test code = 3.3 MMOL/L 3.5-5.1 L K) CHLORIDE (test code = 107 MMOL/L 98-107 N CL) CARBON DIOXIDE (test 20 MMOL/L 22-30 L code = CO2) ANION GAP (test code = 13 MMOL/L 14-24 L GAP) GLUCOSE (test code = 146 MG/DL 74-106 H GLU) BLOOD UREA NITROGEN 26 MG/DL 9-20 H (test code = BUN) GLOMERULAR FILTRATION 55 Report ing units: RATE (test code = GFR) ml/mi n/1.73 m2 (Modified MDRD Formula)Referen ce Range: > or = 6 0 ml/min/1.73 m2 CREATININE (test code 1.30 MG/DL 0.66-1.25 H = CREAT) CALCIUM (test code = 8.6 MG/DL 8.4-10.2 N CA) [id number] 08:34:00 Test Item Value Reference Range Interpretation Comments MAGNESIUM (test code = MAG) 1.9 MG/DL 1.6-2.3 N GLUCOSE BEDSIDE [id number] 04:38:00 Test Item Value Reference Range Interpretation Comments GLUCOSE BEDSIDE TESTING (test code 135 MG/DL 60-99 H = GLUBED) GLUCOSE BEDSIDE [id number] 18:44:00 Test Item Value Reference Range Interpretation Comments GLUCOSE BEDSIDE TESTING (test code 144 MG/DL 60-99 H = GLUBED) GLUCOSE BEDSIDE [id number] 15:14:00 Test Item Value Reference Range Interpretation Comments GLUCOSE BEDSIDE TESTING (test code 146 MG/DL 60-99 H = GLUBED) [id number] 11:43:00 Test Item Value Reference Range Interpretation Comments TROPONIN-I (test code = TROPI) < 0.012 NG/ML 0.012-0.033 L UNABLE TO DRAW BLOOD, REASON: PT WAS GETTING ECHOGRAMNOTIFIED PATIENT CARE STAFF: MARSHALL 05/22/20 AT 0901 BY Troy BergeronlGLUCOSE BEDSIDE [id number] 11:09:00 Test Item Value Reference Range Interpretation Comments GLUCOSE BEDSIDE TESTING (test code 216 MG/DL 60-99 H = GLUBED) - XR CHEST [id number] 10:30:00 [facility] 1950 Sex: M Patient Name: NAT SHIN Unit No: [id number] EXAMS: CPT CODE: [id number] XR CHEST 1V [id number]- XR CHEST 1V INDICATION:Pneumonia, STEMI LOCATION: T18 The lungs are clear. The cardiomediastinal silhouette is within normal limits. Old right rib fractures. IMPRESSION: No active disease. at 1030 Reported and signed by: Gloria zamora MD CC: Vickie Mendieta MD; Brown Richardson MD; Arvin Clay Technologist: RHONA Montemayor, RT(R) Transcrpt Date/Tm/Trnsp: 05/22/2020 (1030) Lori Orig Print D/T: S: 05/22/2020 (1033) [facility] NAME: NAT SHIN [id number] [place] PHYS: [place] [address] : 1950 AGE: 69 SEX: M LOC: [phone].[id number] A PHONE #: [phone] EXAM DATE: 05/22/2020 STATUS: ADM IN FAX #: [phone] RADIOLOGY NO: PAGE 1 Signed ReportCOMPREHENSIVE METABOLIC [id number] 06:39:00 Test Item Value Reference Range Interpretation Comments SODIUM (test code 139 MMOL/L 137-145 N = NA) POTASSIUM (test 3.4 MMOL/L 3.5-5.1 L code = K) CHLORIDE (test 106 MMOL/L 98-107 N code = CL) CARBON DIOXIDE 23 MMOL/L 22-30 N (test code = CO2) ANION GAP (test 13 MMOL/L 14-24 L code = GAP) GLUCOSE (test 170 MG/DL 74-106 H code = GLU) BLOOD UREA 31 MG/DL 9-20 H NITROGEN (test code = BUN) GLOMERULAR 50 Reporting units : FILTRATION RATE ml/min/1.73 m2 (Modified (test code = GFR) MDRD Formu la)Reference Range: > or = 6 0 ml/min/1.73 m2 CREATININE (test 1.40 MG/DL 0.66-1.25 H code = CREAT) TOTAL PROTEIN 7.0 G/DL 6.2-7.6 N Ortho Clinical Diagnostic (test code = has made us huong re of PROT) newinformation regarding the potential i nterference ofEltrombopag ( a bone marrow stimulan t used to treatthrombocyt onmenia and aplastic anemia ) with specific assays on the Vitros 5600 of which Total Protein is one of thoseassays per formed in our lab.Interfe rence testing perform ed at Ortho determined that Eltrombopag does interfere with Vitros Total Protein asfollowsEltrom bopag Interference fo r Vitros Product Total Protein:======= Eltrombopag Max Observed A vg. BiasConcentrati on Concentration Concentration== ==== 2.5 mg/dl 6.0 g/dl +0.41 +0.34 3.5 mg/dl 6.0 g /dl +0.50 +0.45 5 mg/dl 6 .0 g/dl +0.73 +0.65 2.5 mg/dl 8.0 g/dl +0.44 +0.4 1 3.5 mg/dl 8.0 g/dl +0.55 +0.52 5 mg/dl 8.0 g/dl +0.86 +0.77 ALBUMIN (test 3.8 G/DL 3.5-5.0 N code = ALB) CALCIUM (test 8.9 MG/DL 8.4-10.2 N code = CA) BILIRUBIN TOTAL 0.9 MG/DL 0.2-1.3 N Eltrombopag Interference (test code = for Vitros Prod uct TBil, BILT) BuBc: Assa y Eltrombopag Suellen lyte/ Max Observed Avg. B ias Concentration C oncentration Concentration== ====TBil 7mg/dl TBil/ 1. 2mg/dl +0.23mg.dl +0.2 0mg/dlBuBc 3.5mg/dl Bu/0. 8mg/dl +0.25mg/dl +0.2 4mg/dlBuBc 7 mg/dl Bu/14.2mg /dl +0.38mg/dl +0.2 5mg/dlBuBc 5mg/dl Bc/0mg/d l +0.25mg/dl +0.15mg/dlBuBc 3.5mg/dl Bc/2.8mg/dl +0 .25mg/dl +0.23mg/dl SGOT/AST (test 30 UNITS/L 17-59 N code = AST) SGPT/ALT (test 28 UNITS/L <50 code = ALT) ALKALINE 46 UNITS/L 38-126 N PHOSPHATASE (test code = ALKP) [id number] 06:39:00 Test Item Value Reference Range Interpretation Comments TROPONIN-I (test code = TROPI) < 0.012 NG/ML 0.012-0.033 L COMPREHENSIVE METABOLIC [id number] 06:33:00 Test Item Value Reference Range Interpretation Comments SODIUM (test code 139 MMOL/L 137-145 N = NA) POTASSIUM (test 3.4 MMOL/L 3.5-5.1 L code = K) CHLORIDE (test 106 MMOL/L 98-107 N code = CL) CARBON DIOXIDE 23 MMOL/L 22-30 N (test code = CO2) ANION GAP (test 13 MMOL/L 14-24 L code = GAP) GLUCOSE (test 170 MG/DL 74-106 H code = GLU) BLOOD UREA 31 MG/DL 9-20 H NITROGEN (test code = BUN) GLOMERULAR 50 Reporting units : FILTRATION RATE ml/min/1.73 m2 (Modified (test code = GFR) MDRD Formu la)Reference Range: > or = 6 0 ml/min/1.73 m2 CREATININE (test 1.40 MG/DL 0.66-1.25 H code = CREAT) TOTAL PROTEIN 7.0 G/DL 6.2-7.6 N Ortho Clinical Diagnostic (test code = has made us huong re of PROT) newinformation regarding the potential i nterference ofEltrombopag ( a bone marrow stimulan t used to treatthrombocyt onmenia and aplastic anemia ) with specific assays on the Vitros 5600 of which Total Protein is one of thoseassays per formed in our lab.Interfe rence testing perform ed at Ortho determined that Eltrombopag does interfere with Vitros Total Protein asfollowsEltrom bopag Interference fo r Vitros Product Total Protein:======= Eltrombopag Max Observed Av g. BiasConcentrati on Concentration Concentration== ==== 2.5 mg/dl 6.0 g/dl +0.41 +0.34 3.5 mg/dl 6.0 g /dl +0.50 +0.45 5 mg/dl 6 .0 g/dl +0.73 +0.65 2.5 mg/dl 8.0 g/dl +0.44 +0.4 1 3.5 mg/dl 8.0 g/dl +0.55 +0.52 5 mg/dl 8.0 g/dl +0.86 +0.77 ALBUMIN (test 3.8 G/DL 3.5-5.0 N code = ALB) CALCIUM (test 8.9 MG/DL 8.4-10.2 N code = CA) BILIRUBIN TOTAL 0.9 MG/DL 0.2-1.3 N Eltrombopag Interference (test code = for Vitros Prod uct TBil, BILT) BuBc: Assa y Eltrombopag Suellen lyte/ Max Observed Avg. B ias Concentration C oncentration Concentration== ====TBil 7mg/dl TBil/ 1. 2mg/dl +0.23mg.dl +0. 20mg/dlBuBc 3.5mg/dl Bu/0.8 mg/dl +0.25mg/dl +0.2 4mg/dlBuBc 7 mg/dl Bu/14.2mg /dl +0.38mg/dl +0.2 5mg/dlBuBc 5mg/dl Bc/0mg/d l +0.25mg/dl +0.15mg/dlBuBc 3.5mg/dl Bc/2.8mg/dl +0. 25mg/dl +0.23mg/dl SGOT/AST (test 30 UNITS/L 17-59 N code = AST) SGPT/ALT (test 28 UNITS/L <50 code = ALT) ALKALINE 46 UNITS/L 38-126 N PHOSPHATASE (test code = ALKP) [id number] 06:33:00 Test Item Value Reference Range Interpretation Comments TROPONIN-I (test code = TROPI) NG/ML 0.0-0.045 LACTIC [id number] 06:19:00 Test Item Value Reference Range Interpretation Comments LACTIC ACID (test code = LACT) 1.4 MMOL/L 0.7-2.1 N URINALYSIS [id number] 06:17:00 Test Item Value Reference Range Interpretation Comments UA COLOR (test code = YELLOW YELLOW COLU) UA APPEARANCE (test code CLEAR CLEAR = APPU) UA GLUCOSE DIPSTICK (test NORMAL MG/DL NORMAL code = DGLUU) UA BILIRUBIN DIPSTICK NEGATIVE MG/DL NEGATIVE (test code = BILU) UA KETONE DIPSTICK (test NEGATIVE MG/DL NEGATIVE code = KETU) UA SPECIFIC GRAVITY (test 1.015 1.003-1.030 N code = SGU) UA BLOOD DIPSTICK (test NEGATIVE Alexander/mm3 NEGATIVE code = TAIWO) UA PH DIPSTICK (test code 5.0 5.0-9.0 N = GABRIELLE) UA PROTEIN DIPSTICK (test 30 MG/DL NEGATIVE A code = PROU) UA UROBILINIOGEN DIPSTICK NORMAL MG/DL NORMAL (test code = URO) UA NITRITE DIPSTICK (test NEGATIVE NEGATIVE code = JOHNNY) UA LEUKOCYTE ESTERASE NEGATIVE /mm3 NEGATIVE DIPSTICK (test code = LEUU) UA CULTURE NEEDED? (test NO, WBC<10 Criteria Culture Chk code = UACULT) SOURCE OF URINE: MIDSTREAMUA [id number] 06:17:00 Test Item Value Reference Range Interpretation Comments UA RBC (test code = RBCU) 0-3 RBC/HPF 0-3 UA WBC (test code = XWBCU) 0-3 WBC/HPF 0-5 UA EPITHELIAL CELLS (test code = RARE EPI/HPF FEW EPIU) UA BACTERIA (test code = XBACU) RARE NONE SOURCE OF URINE: MIDSTREAMCBC W/AUTO [id number] 06:07:00 Test Item Value Reference Range Interpretation Comments WHITE BLOOD CELL (test code = 12.2 K/MM3 3.8-9.8 H WBC) RED BLOOD CELL (test code = 3.85 M/MM3 3.95-5.67 L RBC) HEMOGLOBIN (test code = HGB) 11.5 G/DL 12.4-16.7 L HEMATOCRIT (test code = HCT) 35.7 % 35.9-49.5 L MEAN CELL VOLUME (test code = 93 fL 81.7-96.1 N MCV) MEAN CELL HGB (test code = MCH) 29.9 pg 27.6-33.2 N MEAN CELL HGB CONCETRATION 32.2 % 32.9-35.5 L (test code = MCHC) RED CELL DISTRIBUTION WIDTH 15.6 % 12.1-15.2 H (test code = RDW) PLATELET COUNT (test code = 327 K/MM3 129-368 N PLT) MEAN PLATELET VOLUME (test code 11.6 fl 7.4-10.4 H = MPV) NEUTROPHIL % (test code = NT%) 89.9 % 43-75 H IMMATURE GRANULOCYTE % (test 0.2 % 0.0-2.0 N code = IG%) LYMPHOCYTE % (test code = LY%) 6.0 % 14-44 L MONOCYTE % (test code = MO%) 3.8 % 4-13 L EOSINOPHIL % (test code = EO%) 0.0 % 0-6 N BASOPHIL % (test code = BA%) 0.1 % 0-2 N NUCLEATED RBC % (test code = 0.0 % 0-1.0 N NRBC%) NEUTROPHIL # (test code = NT#) 10.99 K/mm3 2.0-7.6 H IMMATURE GRANULOCYTE # (test 0.03 x10 3/uL 0-0.03 N code = IG#) LYMPHOCYTE # (test code = LY#) 0.73 K/mm3 1.0-3.8 L MONOCYTE # (test code = MO#) 0.46 K/mm3 0.1-0.8 N EOSINOPHIL # (test code = EO#) 0.00 K/mm3 0.0-0.2 N BASOPHIL # (test code = BA#) 0.01 K/mm3 0.0-0.2 N NUCLEATED RBC # (test code = 0.00 K/mm3 0.0-0.1 N NRBC#) URINALYSIS [id number] 06:05:00 Test Item Value Reference Range Interpretation Comments UA COLOR (test code = COLU) YELLOW YELLOW UA APPEARANCE (test code = CLEAR CLEAR APPU) UA GLUCOSE DIPSTICK (test NORMAL MG/DL NORMAL code = DGLUU) UA BILIRUBIN DIPSTICK (test NEGATIVE MG/DL NEGATIVE code = BILU) UA KETONE DIPSTICK (test NEGATIVE MG/DL NEGATIVE code = KETU) UA SPECIFIC GRAVITY (test 1.015 1.003-1.030 N code = SGU) UA BLOOD DIPSTICK (test code NEGATIVE Alexander/mm3 NEGATIVE = TAIWO) UA PH DIPSTICK (test code = 5.0 5.0-9.0 N GABRIELLE) UA PROTEIN DIPSTICK (test 30 MG/DL NEGATIVE A code = PROU) UA UROBILINIOGEN DIPSTICK NORMAL MG/DL NORMAL (test code = URO) UA NITRITE DIPSTICK (test NEGATIVE NEGATIVE code = JOHNNY) UA LEUKOCYTE ESTERASE NEGATIVE /mm3 NEGATIVE DIPSTICK (test code = LEUU) UA CULTURE NEEDED? (test Criteria Culture Chk code = UACULT) SOURCE OF URINE: MIDSTREAMUA [id number] 06:05:00 Test Item Value Reference Range Interpretation Comments UA RBC (test code = RBCU) RBC/HPF 0-3 UA WBC (test code = XWBCU) WBC/HPF 0-5 UA EPITHELIAL CELLS (test code = EPI/HPF FEW EPIU) UA BACTERIA (test code = XBACU) NONE SOURCE OF URINE: MIDSTREAMURINALYSIS [id number] 06:05:00 Test Item Value Reference Range Interpretation Comments UA COLOR (test code = COLU) YELLOW YELLOW UA APPEARANCE (test code = CLEAR CLEAR APPU) UA GLUCOSE DIPSTICK (test NORMAL MG/DL NORMAL code = DGLUU) UA BILIRUBIN DIPSTICK (test NEGATIVE MG/DL NEGATIVE code = BILU) UA KETONE DIPSTICK (test NEGATIVE MG/DL NEGATIVE code = KETU) UA SPECIFIC GRAVITY (test 1.015 1.003-1.030 N code = SGU) UA BLOOD DIPSTICK (test code NEGATIVE Alexander/mm3 NEGATIVE = TAIWO) UA PH DIPSTICK (test code = 5.0 5.0-9.0 N GABRIELLE) UA PROTEIN DIPSTICK (test 30 MG/DL NEGATIVE A code = PROU) UA UROBILINIOGEN DIPSTICK NORMAL MG/DL NORMAL (test code = URO) UA NITRITE DIPSTICK (test NEGATIVE NEGATIVE code = JOHNNY) UA LEUKOCYTE ESTERASE NEGATIVE /mm3 NEGATIVE DIPSTICK (test code = LEUU) UA CULTURE NEEDED? (test Criteria Culture Chk code = UACULT) SOURCE OF URINE: MIDSTREAMUA [id number] 06:05:00 Test Item Value Reference Range Interpretation Comments UA RBC (test code = RBCU) RBC/HPF 0-3 UA WBC (test code = XWBCU) WBC/HPF 0-5 UA EPITHELIAL CELLS (test code = EPI/HPF FEW EPIU) UA BACTERIA (test code = XBACU) NONE SOURCE OF URINE: MIDSTREAMGLUCOSE BEDSIDE [id number] 05:13:00 Test Item Value Reference Range Interpretation Comments GLUCOSE BEDSIDE TESTING (test code 163 MG/DL 60-99 H = GLUBED) LACTIC [id number] 02:41:00 Test Item Value Reference Range Interpretation Comments LACTIC ACID (test code = LACT) 1.2 MMOL/L 0.7-2.1 N [id number] 02:08:00 Test Item Value Reference Range Interpretation Comments TROPONIN-I (test code = TROPI) < 0.012 NG/ML 0.012-0.033 L EPITOME - Neuro Routine [id number] 11:34:01 Test Item Value Reference Range Interpretation Comments EEGREPORT (test SEE NOTES AND N This awake and sleep code = EEGREPORT) IMAGELINK EEG is wit hin normal limitsNo epileptiform discharges or lateralizing si gns were seen [facility] PhysiciansHemoglobin A1c measurement device [id number] 14:35:04 Test Item Value Reference Range Interpretation Comments Hemoglobin A1C Fingerstick: (test code 6.4 = Hemoglobin A1C Fingerstick:) [facility] MET[facility]OL[facility] [id number] 07:44:00 Test Item Value Reference Range Interpretation [...] LIPOPROTEIN LDL (test 72 MG/DL 0-99 N OPTIM AL.........<100 code = LDL) mg/dLNEAR OPTIMAL/ABOVE OPTIMAL........ .100-12 9 mg/dL BORDERL INE HIGH.........13 0-159 mg/dL HIGH.........16 0-189 mg/dL VERY HIGH.........>/ = 190 mg/dL [id number] 07:44:00 Test Item Value Reference Range Interpretation Comments MAGNESIUM (test code = MAG) 2.1 MG/DL 1.6-2.3 N BASIC METABOLIC [id number] 07:32:00 Test Item Value Reference Range Interpretation [...] LDL (test MG/DL 0-99 code = LDL) [id number] 07:32:00 Test Item Value Reference Range Interpretation Comments MAGNESIUM (test code = MAG) 2.1 MG/DL 1.6-2.3 N PROTHROMBIN [id number] 07:25:00 Test Item Value Reference Range Interpretation Comments PROTHROMBIN TIME 11.1 SECONDS 9.6-11.6 N PATIENT (test code = PTP) INTERNATIONAL NORMAL 1.1 0.8-1.1 N The INR is to be RATIO (test code = used only for INR) monitoring oral anticoagulantth erap y. INDICATION INR VALUE ---- ---- ---- -------1. Prophylaxis, de ep venous thrombos is, including high risk surgery. 2.0 - 3.0 2. Prophylaxis, deep venous thrombosis, hip surgery, treatm ent for deep venous thrombosis or pulmonary prevention of systemic emboli sm in patients wit h valvular heart disease, atrial fibrillation, tissue heart va lve, or acute myocar dial infarction. 2.0 - 3.0 3. Hookman al prosthesis hear t valves, recurre nt systemic emboli sm. 3.0 - 4.5 Comments to [employer] Advisor: WILL BRING TO LABPTT [id number] 07:25:00 Test Item Value Reference Range Interpretation Comments PTT ACTIVATED (test code = APTT) 36.6 SECONDS 22.0-33.0 H Comments to [employer] Advisor: WILL BRING TO LABCBC W/AUTO [id number] 07:12:00 Test Item Value Reference Range Interpretation [...]
[2022-01-07] MEDS ORDERED: HYDROCODONE/CHLORPHEN 5 ML/OSYR ONE (16:34)
--- NOTE | 2022-01-07 16:43 | RAD REPORT ---
EXAM DESCRIPTION: RAD - Chest Pa And Lat (2 Views) - 01/07/2022 4:36 pm CLINICAL HISTORY: COUGH Chest pain. COMPARISON: Chest Pa And Lat (2 Views) dated 06/06/2020; Chest Single View dated 05/21/2020; Chest Sing le View dated 09/03/2017; CHEST PA AND LAT 2 VIEW dated 04/26/2015 TECHNIQUE: PA and lateral views of the chest were obtained. FINDINGS: The lungs are hyperexpanded compatible with COPD. The heart is upper limit of normal in si ze. No fracture or aggressive bony process. Postsurgical changes left upper quadrant. Spinal hardware plate also present lower cervical spine. IMPRESSION: COPD without acute process identified.
[2022-01-07 17:23] LABS: SARS-COV-2 RT PCR NEGATIVE (NEGATIVE)
--- NOTE | 2022-01-07 17:25 | ER ---
Nurse's Notes [facility] Name: Keith Maynard Age: 71 yrs Sex: Male : 1950 Arrival Date: 01/07/2022 Time: 14:50 Bed DIS7 Private MD: Luis Felipe Pryor Diagnosis: Acute bronchitis, unspecified Presentation: 01/07 15:39 Chief complaint: Patient states: cough , and a little runny nose, X 1 week. Coronavirus iw screen: Client presents with at least one sign or symptom that may indicate coronavirus-19. Ebola Screen: Patient negative for fever greater than or equal to 101.5 degrees Fahrenheit, and additional compatible Ebola Virus Disease symptoms Patient denies exposure to infectious person. Patient denies travel to an Ebola-affected area in the 21 days before illness onset. No symptoms or risks identified at this time. Initial Sepsis Screen: Does the patient meet any 2 criteria? No. Patient's initial sepsis screen is negative. Does the patient have a suspected source of infection? No. Patient's initial sepsis screen is negative. Risk Assessment: Do you want to hurt yourself or someone else? Patient reports no desire to harm self or others. Onset of symptoms was January 01, 2022. 15:39 Method Of Arrival: Ambulatory iw 15:39 Acuity: ROBINSON 4 iw Historical: - Allergies: 15:40 PENICILLINS; iw - PMHx: 15:40 Diabetes - NIDDM; High Cholesterol; Hypertension; iw - Immunization history:: Client reports receiving the 2nd dose of the Covid vaccine. - Social history:: Smoking status: Patient denies any tobacco usage or history of. Screenin:45 Abuse screen: Denies threats or abuse. Denies injuries from another. Nutritional kb3 screening: No deficits noted. Tuberculosis screening: No symptoms or risk factors identified. Fall Risk None identified. Assessment: 16:45 General: Appears in no apparent distress. Behavior is calm, cooperative, Received care kb3 of pt from [facility], ambulatory without distress, AAO x4. Pt reports runny nose, cough, congestion x1 week.. 16:45 Pain: Denies pain. Respiratory: Reports cough that is productive, Airway is patent kb3 Breath sounds are clear bilaterally. EENT: Reports nasal discharge that is yellow. Vital Signs: 15:39 BP 133 / 69; Pulse 72; Resp 16; Temp 98.3; Pulse Ox 99% on R/A; iw 18:17 BP 146 / 75; Pulse 60; Resp 20; Temp 98.9; Pulse Ox 100% ; kb3 ED Course: 14:50 Patient arrived in ED. rg4 14:51 Luis Felipe Pryor DO is Private Physician. rg4 15:12 Enedina Booth FNP-C [facility]. snw 15:12 Rogelio Funes MD is Attending Physician. snw 15:40 Triage completed. iw 15:40 Arm band placed on. iw 15:53 Deborah Casas, RN is Primary Nurse. kb3 16:28 Patient moved to radiology via wheelchair. kb3 16:37 Chest Pa And Lat (2 Views) XRAY In Process Unspecified. EDMS 16:45 Patient has correct armband on for positive identification. kb3 16:45 No provider procedures requiring assistance completed. Patient did not have IV access kb3 during this emergency room visit. 17:24 Luis Felipe Pryor DO is Referral Physician. snw Administered Medications: 16:40 Drug: Tussionex Pennkinetic ER (chlorpheniramine-hydrocodone) Suspension 5 ml Route: PO;kb3 17:30 Follow up: Response: No adverse reaction; Marked relief of symptoms kb3 Medication: 16:45 VIS not applicable for this client. kb3 Outcome: 17:25 Discharge ordered by . snw 18:17 Discharged to home ambulatory. kb3 18:17 Condition: stable 18:17 Discharge instructions given to patient, Instructed on discharge instructions, follow up and referral plans. medication usage, Demonstrated understanding of instructions, follow-up care, medications, Prescriptions given X 4. 18:18 Patient left the ED. kb3 Signatures: Dispatcher [employer] EDMS Enedina Booth FNP-C [employer] Jeanne Dotson, RN RN iw Terra Bergeron rg4 Deborah Casas, RN RN kb3
--- NOTE | 2022-01-07 17:25 | EDPHYS ---
Physician Documentation [facility] Name: Keith Maynard Age: 71 yrs Sex: Male : 1950 Arrival Date: 01/07/2022 Time: 14:50 Bed DIS7 Private MD: Konstantin [facility] ED Physician Rogelio Funes HPI: 01/07 16:18 This 71 yrs old Male presents to ER via Ambulatory with complaints of Cough. snw 16:18 The patient or guardian reports cough, flu symptoms, arthralgias, low-grade fever, snw myalgias. Onset: The symptoms/episode began/occurred acutely, suddenly. Severity of symptoms: At their worst the symptoms were moderate. Associated signs and symptoms: Pertinent positives: rhinorrhea. It is unknown whether or not the patient has had similar symptoms in the past. The patient has been recently seen by a physician: the patient's primary care provider, with similar presenting complaints, given benzonatate, "not working". Historical: - Allergies: 15:40 PENICILLINS; iw - PMHx: 15:40 Diabetes - NIDDM; High Cholesterol; Hypertension; iw - Immunization history:: Client reports receiving the 2nd dose of the Covid vaccine. - Social history:: Smoking status: Patient denies any tobacco usage or history of. ROS: 16:16 Eyes: Negative for injury, pain, redness, and discharge, ENT: Negative for injury, snw pain, and discharge, Neck: Negative for injury, pain, and swelling, Cardiovascular: Negative for chest pain, palpitations, and edema. 16:16 Abdomen/GI: Negative for abdominal pain, nausea, vomiting, diarrhea, and constipation, Back: Negative for injury and pain, : Negative for injury, bleeding, discharge, and swelling, MS/Extremity: Negative for injury and deformity, Skin: Negative for injury, rash, and discoloration, Neuro: Negative for headache, weakness, numbness, tingling, and seizure. 16:16 Constitutional: Positive for body aches, chills, fatigue, fever, malaise. 16:16 Respiratory: Positive for cough, with no reported sputum. Exam: 16:16 Constitutional: This is a well developed, well nourished patient who is awake, alert, snw and in no acute distress. Head/Face: Normocephalic, atraumatic. Eyes: Pupils equal round and reactive to light, extra-ocular motions intact. Lids and lashes normal. Conjunctiva and sclera are non-icteric and not injected. Cornea within normal limits. Periorbital areas with no swelling, redness, or edema. ENT: Nares patent. No nasal discharge, no septal abnormalities noted. Tympanic membranes are normal and external auditory canals are clear. Oropharynx with no redness, swelling, or masses, exudates, or evidence of obstruction, uvula midline. Mucous membranes moist. Neck: Trachea midline, no thyromegaly or masses palpated, and no cervical lymphadenopathy. Supple, full range of motion without nuchal rigidity, or vertebral point tenderness. No Meningismus. Chest/axilla: Normal chest wall appearance and motion. Nontender with no deformity. No lesions are appreciated. Cardiovascular: Regular rate and rhythm with a normal S1 and S2. No gallops, murmurs, or rubs. Normal PMI, no JVD. No pulse deficits. 16:16 Back: No spinal tenderness. No costovertebral tenderness. Full range of motion. Skin: Warm, dry with normal turgor. Normal color with no rashes, no lesions, and no evidence of cellulitis. MS/ Extremity: Pulses equal, no cyanosis. Neurovascular intact. Full, normal range of motion. Neuro: Awake and alert, GCS 15, oriented to person, place, time, and situation. Cranial nerves II-XII grossly intact. Motor strength 5/5 in all extremities. Sensory grossly intact. Cerebellar exam normal. Normal gait. Psych: Awake, alert, with orientation to person, place and time. Behavior, mood, and affect are within normal limits. 16:16 Respiratory: the patient does not display signs of respiratory distress, Respirations: shallow respirations, that is moderate, Breath sounds: bronchial sounds, that are moderate, are heard diffusely. Vital Signs: 15:39 BP 133 / 69; Pulse 72; Resp 16; Temp 98.3; Pulse Ox 99% on R/A; iw 18:17 BP 146 / 75; Pulse 60; Resp 20; Temp 98.9; Pulse Ox 100% ; kb3 MDM: 15:54 Patient medically screened. snw 17:31 Data reviewed: vital signs, nurses notes. Data interpreted: Pulse oximetry: on room air snw is 99 %. Interpretation: normal. Counseling: I had a detailed discussion with the patient and/or guardian regarding: the historical points, exam findings, and any diagnostic results supporting the discharge/admit diagnosis, lab results, radiology results, the need for outpatient follow up, to return to the emergency department if symptoms worsen or persist or if there are any questions or concerns that arise at home. Special discussion: Based on the history and exam findings, there is no indication for further emergent testing or inpatient evaluation. I discussed with the patient/guardian the need to see the primary care provider for further evaluation of the symptoms. 01/07 16:08 Order name: COVID-19/FLU A+B/RSV; Complete Time: 17:24 snw 01/07 16:26 Order name: Chest Pa And Lat (2 Views) XRAY; Complete Time: 16:44 snw Administered Medications: 16:40 Drug: Tussionex Pennkinetic ER (chlorpheniramine-hydrocodone) Suspension 5 ml Route: PO;kb3 17:30 Follow up: Response: No adverse reaction; Marked relief of symptoms kb3 Disposition: 16:43 Co-signature as Attending Physician, Rogelio Funes MD I agree with the assessment and rt plan of care. Disposition Summary: 01/07/22 17:25 Discharge Ordered Location: Home snw Condition: Stable snw Diagnosis - Acute bronchitis, unspecified snw Followup: snw - With: Luis Felipe Pryor DO - When: 1 - 2 days - Reason: Recheck today's complaints, Continuance of care, Re-evaluation by your physician Followup: snw - With: Emergency Department - When: As needed - Reason: Worsening of condition Discharge Instructions: - Discharge Summary Sheet snw - Acute Bronchitis, Adult snw - Rehydration, Adult snw Forms: - Medication Reconciliation Form snw - Thank You Letter snw - Antibiotic Education snw - Prescription Opioid Use snw Prescriptions: - Zyrtec 10 mg Oral Tablet - take 1 tablet by ORAL route once daily As needed; 20 tablet; Refills: 0, snw Product Selection Permitted - Prednisone 20 mg Oral Tablet - take 2 tablets by ORAL route once daily for 5 days; 10 tablet; Refills: 0, snw Product Selection Permitted - Pepcid 20 mg Oral Tablet - take 1 tablet by ORAL route once daily; 20 tablet; Refills: 0, Product snw Selection Permitted - Tylenol-Codeine #3 300 mg-30 mg Oral - take 1 tablet by ORAL route every 8 hours; 12 tablet; Refills: 0, Product snw Selection Permitted Signatures: Dispatcher [employer] EDEnedina Gómez, [employer] REAL ESTATE ASSISTANT-[employer] Jeanne Dotson, MANDIE LOCKWOOD iw Deborah Casas RN RN kb3 Rogelio Funes MD MD rt
[2022-01-07 18:43] VITALS: BP 146/75; TEMP 98.9; O2SAT 100
== END 2022-01-07 18:18 | disposition home or self-care (01) ==
LOC: ER 14:48
DX: J20.9 Acute bronchitis, unspecified (principal); Z20.822 Contact with and (suspected) exposure to COVID-19; I10 Essential (primary) hypertension; Z88.0 Allergy status to penicillin
CPT/HCPCS: 0241U; 71046; 99283